=== PATIENT | female | born 1950 | race Caucasian/White ===

== ENCOUNTER → 2016-08-02 | Outpatient (CLI) | payer OTHER ==
[~2016-08-02] MED LIST: LIDOCAINE 1% 30 ML SDV ONE; NA BICARBONATE 50 MEQ/50 ML VIAL ONE
--- NOTE | 2016-08-02 11:07 | US ---
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 Crosscutting Measure #226: Current tobacco user: No. Comparison: CT abdomen and pelvis from [facility], June 27, 2016. Technique: Prior to the procedure, the risks, benefits, and alternatives were discussed with the pat ient, and informed written consent was obtained. A preprocedure ultrasound demonstrated a large simpl e-appearing fluid collection. A timeout was performed. An overlying area of skin was marked, cleane d with Chloraprep and sterilely draped. The skin and soft tissues were anesthetized with buffered 1% lidocaine. A small amount of fluid was aspirated via the anesthesia needle, showing simple-appearing yellow fluid. A paracentesis catheter was advanced into the fluid collection under ultrasound guidanc e and 900 mL of clear yellow fluid were aspirated and sent to the Laboratory. There was no visible re sidual fluid at the end of the procedure. The catheter was removed. Hemostasis was obtained with manu al pressure and a bandage was applied. The patient tolerated the procedure well. Impression: Ultrasound-guided aspiration, as above.
== END ==
LOC: FIMAGING 09:51
PROVIDERS: ATTEND Internal Medicine Hematology & Oncology
PROC: 0W9F3ZZ Drainage of Abdominal Wall, Percutaneous Approach (ICD-10-PCS; principal; 2016-08-02)
DX: R18.8 Other ascites (principal); C18.1 Malignant neoplasm of appendix

== ENCOUNTER 2016-08-11 07:08 | Inpatient (IN) | payer OTHER ==
[2016-08-11] MEDS ORDERED: ONDANSETRON 4 MG/2 ML VIAL IVP ONE (07:30)
[2016-08-11] MEDS ORDERED: MECLIZINE HCL 25 MG TAB PO ONE (07:30)
--- NOTE | 2016-08-11 07:30 | EDPHY ---
HPI/HX/ROS/PE/MDM Narrative: CHIEF COMPLAINT: "I'm just dizzy and I can't keep any food down" HPI: The patient is a 66 y/o female arriving with her friend complaining of vomiting and dizziness onset Friday, 4 days ago. She has a history of colon cancer with peritonectomy 5 months ago, but is not currently on chemotherapy. She began vomiting on Friday, felt normal on , but by Friday was vomiting and dizzy when moving. She describes her dizziness as "room-spinning" when standing and walking. She denies fever, cold, vision changes, chest pain, or shortness of breath. REVIEW OF SYSTEMS: Aside from elements discussed in the HPI, a comprehensive 10-point review of systems was reviewed and is negative. PMH: Colon cancer - not currently on chemotherapy, Peritonectomy March 2016 SOCIAL HISTORY: Friend at bedside PHYSICAL EXAM: General:Patient is alert, in no acute distress. ENT:Eyes are normal to inspection. EOMI intact, no nystagmus. ENT inspection normal. Neck: Normal inspection. Full range of motion. Respiratory:No respiratory distress. Breath sounds normal bilaterally. Cardiovascular: Regular rate and rhythm. Strong peripheral pulses. Normal cap refill. Abdomen:The abdomen is nontender to palpation. There are no peritoneal signs. There are normal bowel sounds. Back: Normal to inspection. No tenderness to palpation. Skin: Normal color. No rash. Warm and dry. Extremities: Normal appearance. Full range of motion. Neuro: Oriented x3. Normal motor function. Normal sensory function. Normal [id number]. ED Course: Symptoms consistent with positional vertigo. IV established. Labs drawn including CBC, CHEM, troponin. EKG ordered. 4mg IV Zofran, 50mg PO Meclizine, and 1L IV NS administered. The 12 lead EKG was interpreted by myself. See hard copy and/or "tracemaster" electronic copy for interpretation. 0830: Potassium is low at 2.4. Patient notes she has not been taking her potassium or iron supplements due to vomiting. 40meq PO potassium administered. 0939: She feels improved after Meclizine, saline, and oral potassium. She does have an elevated blood pressure here and denies previous history of hypertension. I discussed options for admission vs. discharge home. We mutually decided admission is the best choice to monitor her new hypertension, vertigo, and hypokalemia. 1010: Spoke with hospitalist service. Dr. Amy Madera accepts admission. MDM: This patient presents with acute vertigo that seems peripheral in nature. She responded well to medications, but I am concerned about her ability to tolerate her potassium supplements, and she is quite hypokalemic here today. Additionally, her BP is significantly elevated which is new for her. She has a normal cerebellar exam so I think CVA is very unlikely. She requires admission for further observation, treatment and workup. - Data Points Laboratory Results: Laboratory Results 08/11/16 07:25 08/11/16 07:25 08/11/16 07:25 WBC 11.55 H 10^3/uL (3.80-9.50) RBC 5.75 H 10^6/uL (4.18-5.33) Hgb 16.2 g/dL (12.6-16.3) Hct 46.4 % (38.0-47.0) MCV 80.7 L fL (81.5-99.8) MCH 28.2 pg (27.9-34.1) MCHC 34.9 g/dL (32.4-36.7) RDW 13.8 % (11.5-15.2) Plt Count 282 10^3/uL (150-400) MPV 9.1 fL (8.7-11.7) Neut % (Auto) 74.2 % (39.3-74.2) Lymph % (Auto) 17.6 % (15.0-45.0) [place] % (Auto) 6.7 % (4.5-13.0) Eos % (Auto) 0.6 % (0.6-7.6) Baso % (Auto) 0.6 % (0.3-1.7) Nucleat RBC Rel Count 0.0 % (0.0-0.2) Absolute Neuts (auto) 8.57 H 10^3/uL (1.70-6.50) Absolute Lymphs (auto) 2.03 10^3/uL (1.00-3.00) Absolute Monos (auto) 0.77 10^3/uL (0.30-0.80) Absolute Eos (auto) 0.07 10^3/uL (0.03-0.40) Absolute Basos (auto) 0.07 10^3/uL (0.02-0.10) Absolute Nucleated RBC 0.00 10^3/uL (0-0.01) Immature Gran % 0.3 % (0.0-1.1) Immature Gran # 0.04 10^3/uL (0.00-0.10) Sodium 143 mEq/L (134-144) Potassium 2.4 L* mEq/L (3.5-5.2) Chloride 98 mEq/L (97-110) Carbon Dioxide 24 mEq/l (22-31) Anion Gap 21 mEq/L (8-16) BUN 12 mg/dL (7-23) Creatinine 0.8 mg/dL (0.6-1.0) Estimated GFR > 60 Glucose 112 H mg/dL (70-100) Calcium 10.3 mg/dL (8.5-10.4) Troponin I 0.013 ng/mL (0-0.034) Medications Given: Discontinued Medications Sodium Chloride (Ns) 1,000 mls @ 0 mls/hr IV ONCE ONE PRN Reason: Wide Open Stop: 08/11/16 07:32 Last Admin: 08/11/16 07:35 Dose: 1,000 mls Meclizine HCl (Meclizine Hcl) 50 mg PO EDNOW ONE Stop: 08/11/16 07:31 Last Admin: 08/11/16 08:10 Dose: 50 mg Ondansetron HCl (Zofran) 4 mg IVP EDNOW ONE Stop: 08/11/16 07:31 Last Admin: 08/11/16 07:35 Dose: 4 mg Potassium Chloride (Klor-Con) 40 meq PO EDNOW ONE Stop: 08/11/16 08:50 Last Admin: 08/11/16 09:04 Dose: 40 meq General Initial Vital Signs: Initial Vital Signs Temperature (C) 36.5 C 08/11/16 07:11 Heart Rate 68 08/11/16 07:11 Respiratory Rate 19 08/11/16 07:11 Blood Pressure 188/98 H 08/11/16 07:11 O2 Sat (%) 98 08/11/16 07:11 O2 Delivery Mode Room Air Allergies/Adverse Reactions: No Known Allergies Allergy (Unverified 08/11/16 07:10) Home Medications: Medication Instructions Recorded Ferrous Sulfate [Ferrous Sulf 325 325 mg PO DAILY 08/11/16 MG (*)] Herbals/Supplements -Info Only 1 ea PO DAILY 08/11/16 Potassium Cl [Klor-Con] 10 meq PO BID 08/11/16 Departure - Departure Disposition: [facility] [place] [facility] Acute Clinical Impression: Hypokalemia Positional vertigo Qualifiers: Laterality: unspecified laterality Qualifier Code: (H81.10) Benign paroxysmal vertigo, unspecified ear Hypertension Qualifiers: Hypertension type: essential hypertension Qualifier Code: (I10) Essential ( primary) hypertension Condition: Good Report Scribed for: Christopher Sellers Report Scribed by: Ann Sanz Date of Report: 08/11/16 Time of Report: 07:17 Physician Review and Approval Statement: Portions of this note were transcribed by an ED scribe. I personally performed the history, physical exam, and medical decision making; and confirm the accuracy of the information in the transcribed note.
[2016-08-11] MEDS ORDERED: NS 1,000 ML IV ONE (07:31)
[2016-08-11 07:34] LABS: % IMMATURE GRANULYOCYTES 0.3 % (0.0-1.1); ABSOLUTE IMMATURE GRANULOCYTES 0.04 10^3/uL (0.00-0.10); ADD DIFF? NO; ADD MORPH? NO; ADD SCAN? NO; ATYPICAL LYMPHOCYTE FLAG 0 (0-99); FRAGMENT RBC FLAG 0 (0-99); HEMATOCRIT 46.4 % (38.0-47.0); HEMOGLOBIN 16.2 g/dL (12.6-16.3); LEFT SHIFT FLG 0 (0-99); LIPEMIA HEMOLYSIS FLAG 90 (0-99); MEAN CELL HEMOGLOBIN 28.2 pg (27.9-34.1); MEAN CELL HEMOGLOBIN CONCENTR. 34.9 g/dL (32.4-36.7); MEAN CELL VOLUME 80.7 fL (81.5-99.8); MEAN PLATELET VOLUME 9.1 fL (8.7-11.7); PLATELET CLUMPS FLAG 0 (0-99); PLATELET COUNT 282 10^3/uL (150-400); RED BLOOD CELL COUNT 5.75 10^6/uL (4.18-5.33); RED CELL DISTRIBUTION WIDTH 13.8 % (11.5-15.2)
--- NOTE | 2016-08-11 07:42 | CPEKG ---
Heart Rate: 59 RR Interval: 1017 P-R Interval: 140 QRSD Interval: 78 QT Interval: 448 QTC Interval: 444 P [place]: 72 QRS [place]: 43 T Wave [place]: 75 EKG Severity - ABNORMAL ECG - EKG Impression: SINUS RHYTHM EKG Impression: CONSIDER POSTERIOR INFARCT Electronically Signed By: Christopher Sellers 11-Aug-2016 15:44:13
[2016-08-11 07:45] LABS: ANION GAP 21 mEq/L (8-16); CALCIUM 10.3 mg/dL (8.5-10.4); GLOMERULAR FILTRATION RATE > 60
[2016-08-11 07:57] LABS: TROPONIN I 0.013 ng/mL (0-0.034)
[2016-08-11 08:12] LABS: CARBON DIOXIDE 24 mEq/l (22-31); CHLORIDE 98 mEq/L (97-110); CREATININE 0.8 mg/dL (0.6-1.0); GLUCOSE 112 mg/dL (70-100); SODIUM 143 mEq/L (134-144)
[2016-08-11 08:28] LABS: POTASSIUM 2.4 mEq/L (3.5-5.2)
[2016-08-11] MEDS ORDERED: POTASSIUM CL 20 MEQ TAB PO ONE (08:49)
[2016-08-11] MEDS: hydrALAZINE 20 MG/ML VIAL IVP PRN (12:53)
[2016-08-11] MEDS: ONDANSETRON 4 MG/2 ML VIAL IVP PRN (12:54)
[2016-08-11] MEDS ORDERED: FLU VACC TS 2016-17(65YR+)/PF 0.5 ML SYR (FLUZONE HIGH DOSE) IM ONE (13:30)
[2016-08-11] MEDS: ENALAPRILAT DIHYDRATE 1.25 MG/ML VIAL IVP PRN ×2 (13:57→22:38)
[2016-08-11] MEDS ORDERED: ACETAMINOPHEN 325 MG TAB PO PRN (15:50)
--- NOTE | 2016-08-11 15:50 | PDGENHP ---
History and Physical History and Physical: Chief complaint: Dizziness, nausea and vomiting History of present illness: Pt is a 66yo F who p/w dizziness that began about 4 days ago. It came and went. It was a/w nausea and vomiting. She was not eating or drinking much in the last few days because she was unable to keep anything down. She denies any changes in hearing, although she does wear hearing aids normally. She denies tinnitus. She thought she might be coming down with a flu but denies any congestion, runny nose, sore throat, cough, fevers/chills, or diarrhea. Dizziness is worse when she moves her head. She feels like the room is moving, but not really spinning. She has had a headache on and off, which is worse today. She was also noted to have high BP today, without any h/o HTN. She has seen many healthcare professionals in the last few months related to her recent history of cancer and has never been found to have high BP. Other symptoms: has some chronic abd aching from prior abd surgery/ paracentesis. 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 Past surgical history: peritonectomy Mar 2016, paracentesis Jul 2016, appendectomy w/ incidental finding of colon cancer Apr 2015. Medications: please see med rec. Iron and potassium supplements. Allergies: NKA. Social history: occasional alcohol, non-smoker, no drug use. Lives alone. . Has a living will -- sister and brother are POAs. Family history: Mother - breast cancer, brother - liver disease, acromegaly. Review of systems: 10 point review of systems was conducted and is negative except per HPI Physical exam: Vitals: Reviewed General: The patient is a middle aged female who is A&Ox3 and in no acute distress. HEENT: normocephalic, extraocular movements intact, conjunctivae clear. Nares and oral mucosa pink and moist. Neck: trachea midline, no visible masses, no external lesions. CV: +S1/S2, reg rate and rhythm. No murmurs/rubs/gallops. Resp: unlabored breathing, lungs clear to auscultation w/o rales, rhonchi, or wheezing. Abd: soft and nondistended, bowel sounds present. Noted surgical scar. Nontender to palpation throughout. Musculoskeletal: 5/5 muscle strength bilateral upper and lower extremities. Neuro: cranial nerves II XII intact. Intact motor and sensory function throughout. Negative heel-lomas test bilaterally. Normal RADHA. No pronator drift. Patellar DTRs +1 bilaterally. No clonus. Psych: appropriate mood/affect. Skin: No rash or ecchymoses or petechiae. : no suprapubic tenderness. Heme/lymph: No peripheral edema. Labs: Reviewed, noted low potassium. Other Data: EKG: NSR, rt 60, 1mm ST depression V2, QTc around 450ms. Impression and plan: -Vertigo, likely secondary to BPPV -Nausea and vomiting, secondary to vertigo -Dehydration, secondary to above -Accelerated HTN, secondary to vomiting -Headache, secondary to HTNsive urgency and dehydration -Hypokalemia -St IV colon cancer w/ mets to peritoneum, s/p surgery/chemo, in remission -Vertigo is more likely from BPPV but can be secondary to some other etiologies as well. No neuro deficits were noted on exam or per history to raise concern about CVA. Could possibly have a labrynthitis, possibly from virus. Provided patient w/ handout about dizziness/vertigo from [employer] as well as a handout about BPPV including maneuvers from [facility]. -prn antiemetics. -prn YANEZ medication. -Received IV fluids in ED. -Potassium replaced. -prn meclizine. -VTE ppx - not needed. -Code status - full. Dispo: admitted for Obs, expect DC to home in AM.
[2016-08-11] MEDS ORDERED: POTASSIUM CL 20 MEQ PKT PO ONE (16:31)
[2016-08-11] MEDS: ACETAMINOPHEN/ASA/CAFFEINE 1 EACH TAB PO PRN (16:46)
[2016-08-11] MEDS: OXYCODONE/APAP 5/325 TAB PO PRN (20:44)
--- NOTE | 2016-08-11 22:09 | CT ---
CT Brain (Without Contrast) at 2151 hours History: Altered mental status, slurred speech, headache. Comparison: None. Technique: Axial computed tomographic images of the brain without contrast. Dose reduction technique s were utilized. Findings: Ventricles, cisterns, and sulci are normal without atrophy, hydrocephalus, midline shift/h erniation, or epidural/subdural hematomas. No acute intraparenchymal hemorrhage, definite infarct, or mass effect. Bone windows demonstrate no displaced fractures. Paranasal sinuses and mastoid air cell s are clear. Impression: 1. Normal CT brain without contrast. 2. No sinusitis. 3.Consider MRI of the brain without and with contrast enhancement, if there is continued clinical con cern.
--- NOTE | 2016-08-11 23:21 | HOSPPROG ---
Hospitalist Progress Note Assessment/Plan: Called by RN for uncontrolled htn and YANEZ. RN reported that patient was confused earlier, poured a pitcher on her bed. She reports ongoing severe YANEZ to me and recognizes that she feels confused. 193/93, HR 70 appears uncomfortable, holding head, slow to respond AOx3, neuro exam nl CTH neg A/P: Concern for htn emergency with confusion and persistent YANEZ Transfer to ICU, place on Cardene gtt, goal SBP 160-170 Morphine for YANEZ Recheck BMP and trop 35 mins floor critical care time spent with patient Objective: Vital Signs Temp Pulse Resp BP Pulse Ox 36.7 C 63 18 179/106 H 97 08/11/16 20:00 08/11/16 20:00 08/11/16 20:00 08/11/16 22:38 08/11/16 20:00 ICD10 Worksheet Patient Problems: Problems Problem Status Diagnosed Hypertension Acute Hypokalemia Acute Positional vertigo Acute
[2016-08-11 23:48] LABS: ANION GAP 16 mEq/L (8-16); CALCIUM 9.4 mg/dL (8.5-10.4); CARBON DIOXIDE 24 mEq/l (22-31); CHLORIDE 102 mEq/L (97-110); CREATININE 0.7 mg/dL (0.6-1.0); GLOMERULAR FILTRATION RATE > 60; GLUCOSE 110 mg/dL (70-100); SODIUM 142 mEq/L (134-144)
[2016-08-11] MEDS: niCARdipine/NACL 200 ML IV SCH (23:49)
[2016-08-12 00:11] LABS: TROPONIN I 0.039 ng/mL (0-0.034)
[2016-08-12] MEDS: ONDANSETRON 4 MG/2 ML VIAL IVP PRN (00:34)
[2016-08-12] MEDS: ACETAMINOPHEN/ASA/CAFFEINE 1 EACH TAB PO PRN (00:34)
[2016-08-12] MEDS: NS W/ 20 KCl/L 1,000 ML IV SCH ×2 (01:06→10:56)
[2016-08-12] MEDS ORDERED: POTASSIUM CL 20 MEQ TAB PO ONE (01:06)
[2016-08-12] MEDS: hydrALAZINE 20 MG/ML VIAL IVP PRN ×2 (03:54→13:21)
[2016-08-12 04:35] LABS: ANION GAP 14 mEq/L (8-16); CALCIUM 9.2 mg/dL (8.5-10.4); CARBON DIOXIDE 23 mEq/l (22-31); CHLORIDE 104 mEq/L (97-110); CREATININE 0.6 mg/dL (0.6-1.0); GLOMERULAR FILTRATION RATE > 60; GLUCOSE 110 mg/dL (70-100); POTASSIUM 3.3 mEq/L (3.5-5.2); SODIUM 141 mEq/L (134-144)
[2016-08-12] MEDS ORDERED: GADOBUTROL 10 ML VIAL IVP ONE (11:09)
[2016-08-12] MEDS: ENOXAPARIN 40 MG/0.4 ML SYR SC SCH ×2 (12:24→14:07)
--- NOTE | 2016-08-12 13:30 | MR ---
MRI of the Brain (Without Contrast) History: Confusion, dizziness. Technique: 2 sets of localization fast GRE imaging is performed through the brain in 3 planes. Due to patient confusion, she could not hold still and therefore the study was terminated. Findings: Very limited evaluation does not identify hydrocephalus, midline shift or an obvious large intracranial mass or hemorrhage. Impression: Very limited examination does not show any obvious gross pathology. Recommend reschedulin g with patient sedation or when the patient is less confused.
--- NOTE | 2016-08-12 13:45 | GCON ---
[f rep st] CONSULTATION CRITICAL CARE CONSULTATION DATE OF CONSULTATION: 08/12/2016 HISTORY OF PRESENT ILLNESS: The patient is a 66-year-old female with a history of metastatic colon cancer who has been in remission since her last chemotherapy in March. Yesterday, she was admitted to the hospital with nausea, vomiting, and dizziness which was thought to be vertigo. She denied any known sick contacts. She did have a headache. She had been feeling poorly for the week preceding that event. She was also found to have a potassium of 2.4 and a blood pressure of at least 188/98. Her blood pressure persisted and she was briefly on a Cardene drip, and that has subsequently resolved. She had no syncope. She had no visual changes or hearing changes, difficulty swallowing , and no motor deficits, and no history of strokes in the past. REVIEW OF SYSTEMS: Otherwise negative. PAST MEDICAL HISTORY: Includes stage IV metastatic colon cancer treated with a peritonectomy, on chemotherapy, and has been in remission. Hard of hearing. Hypokalemia that has been present since the time of her surgery, though she was uncertain as to the exact cause. PAST SURGICAL HISTORY: Included peritonectomy, paracenteses in the past, and appendectomy in 2014 when her colon cancer was first diagnosed. SOCIAL HISTORY: She is a nonsmoker. Has occasional alcohol, but no IV or recreational drug use. FAMILY HISTORY: Included breast carcinoma and acromegaly. CURRENT MEDICATIONS: Include Excedrin, Vasotec p.r.n., Lovenox subcu daily, hydralazine p.r.n., meclizine 25 mg p.o. b.i.d. p.r.n., morphine p.r.n., nicardipine p.r.n., Zofran, and potassium. PHYSICAL EXAMINATION: VITAL SIGNS: She was afebrile. Blood pressure was 106/ 57, heart rate 71, respirations 12, oxygen saturation 96% on room air. GENERAL : She was awake and alert, though she was confused and only oriented x1. She did not know the president, the name of the hospital, or the name of the city. HEENT: Her pupils are equally round and reactive to light. Nonicteric and non- injected. Mucous membranes are moist without erythema or exudate, though she did have a fairly large tongue and had a Mallampati class III to IV airway. NECK: Supple without adenopathy or jugular venous distention. PULMONARY: Breath sounds were clear to auscultation bilaterally without wheezes, rubs or rales. HEART: Regular rate and rhythm without murmurs, rubs or gallops. ABDOMEN: Soft, nontender, nondistended without hepatosplenomegaly and normoactive bowel tones. EXTREMITIES: No cyanosis, clubbing, or edema. NEUROLOGIC: Exam was nonfocal, including cranial nerves and deep tendon reflexes. SKIN: Warm and dry without evidence of rash. PSYCHIATRIC: There was no underlying psychiatric disorder. OBJECTIVE DATA: Includes a white count of 11.5, hematocrit 46, platelets 282. Sodium was 143, potassium 2.4 on admission, 3.3 today, chloride 104, bicarb 23, BUN 10, creatinine 0.6, glucose 110. Calcium 0.2. Troponin was 0.013, up to 0.39, and back down to 0.02. Head CT was performed which was normal. ASSESSMENT AND PLAN: 1. Mental status changes with vertigo. Her symptoms seem to be rather acute to have benign positional vertigo. Other possibilities include a subtle stroke that did not show, then hypertensive encephalopathy, the posterior reversible encephalopathy syndrome where she was dehydrated from the nausea/vomiting. Metastases of the brain also seems unlikely. She seems to be getting better a little bit today and it may be the result of the potassium replacement. An MRI has been ordered and that is pending at this time. I think it would be useful in narrowing down the differential diagnosis. 2. Hypertension. She is normotensive now. She was really quite high yesterday and that could cause hypertensive encephalopathy. Again, the CT would be useful and her blood pressure is much better controlled now. 3. Hypokalemia. This is likely do to a resorption issue related to her partial hemicolectomy and previous surgery since she has been on replacement since that time. A hyperaldosteronemia syndrome is being worked up. We will also look at a urinalysis and urine electrolytes to help determine what that is , and then continue to replace her potassium via the electrolyte protocol. TIME SPENT: A total of about 45 minutes of critical care time was required for this patient. /[id number]/MODL MTDD
--- NOTE | 2016-08-12 14:03 | HOSPPROG ---
Hospitalist Progress Note Assessment/Plan: * vertigo/headache * wanted to get MRI which she is unable to tolerate * will get CTA to rule out vertebral artery dissection * hypertensive urgency * now resolved * hypokalemia * appears to have been chronic * will check renin aldosterone ratio * history of metastatic colon cancer diagnosed 2013 * was in remission * last CT scan a few months ago was stable but did have a little bit of right hydronephrosis * DVT prophylaxis * continue SCDs until more clear of the etiology of her symptoms Subjective: continued headache, dizziness and nausea also with confusion Objective: Vital Signs Temp Pulse Resp BP Pulse Ox 37.1 C 91 17 162/78 H 98 08/12/16 13:00 08/12/16 13:00 08/12/16 13:00 08/12/16 13:21 08/12/16 13:00 Laboratory Results 08/12/16 04:00 08/11/16 08/12/16 08/13/16 05:59 05:59 05:59 Intake Total 634 Output Total 200 Balance 634 -200 discussed with pulmonology - Physical Exam Constitutional: no apparent distress, appears nourished, not in pain Eyes: anicteric sclera, EOMI Ears, Nose, Mouth, Throat: moist mucous membranes, hearing normal Cardiovascular: regular rate and rhythym, no murmur, rub, or gallop Respiratory: no respiratory distress, no rales or rhonchi, clear to auscultation Gastrointestinal: normoactive bowel sounds, soft, non-tender abdomen, no palpable masses Neurologic: AAOx3, other ( not acting appropriately), No weakness Psychiatric: encephalopathic ICD10 Worksheet Patient Problems: Problems Problem Status Diagnosed Hypertension Acute Hypokalemia Acute Positional vertigo Acute
[2016-08-12 14:09] LABS: COLOR YELLOW; LEUKOCYTE ESTERASE,URINE NEGATIVE (NEGATIVE); NITRITE,URINE NEGATIVE (NEGATIVE)
[2016-08-12] MEDS ORDERED: IOPAMIDOL (ISOVUE 370) 100 ML BTL IV ONE (14:17)
[2016-08-12 14:20] LABS: RANDOM URINE POTASSIUM 55.2 mEq/L (0.5-35.0)
--- NOTE | 2016-08-12 15:18 | CT ---
CT Angiogram Neck With Contrast Enhancement and Multiplanar Reconstructions at 1432 hours History: Stroke protocol. Posterior circulation stroke, suspect vertebral dissection. Technique: 1.25-mm axial multidetector helical CT imaging was performed through the brain and neck wh ile 85 mL Isovue-370 were injected intravenously without complication. The images were then transfer red to an independent workstation where multiplanar and three-dimensional reconstructions were perfor med by the interpreting physician and reviewed at multiple windows. Dose reduction techniques were ut ilized. CTA Findings: Slightly limited due to patient motion artifact. However, aortic arch origin of the gre at vessels appear patent. Bilateral common carotid arteries demonstrate minimal atherosclerotic plaqu e at the carotid bulb. No flow-limiting stenosis, occlusion or dissection of the common carotid or in ternal carotid arteries. Bilateral vertebral arteries also appear patent with a dominant left vertebr al artery and a very small distal right vertebral artery. However, vertebrobasilar junction is patent . No evidence of definite vertebral dissection or occlusion. No definite neck adenopathy. Impression: 1. Minimal atherosclerotic disease in bilateral carotid bulbs. 2. No evidence of carotid flow-limiting stenosis, occlusion or dissection. 3. Dominant left vertebral artery with a small right vertebral artery. No vertebral dissection or occ lusion. Measurement of carotid stenosis is based on the residual internal carotid diameter with [place] n Symptomatic Carotid Endarterectomy Trial (NASCET) based stenosis levels. CT Angiogram of the Brain Clinical Indications: Stroke protocol. Posterior circulation stroke, suspect vertebral dissection. Technique: CT angiogram of the brain and neck was performed with the uneventful intravenous administ ration of 85 mL Isovue-370 contrast. Multiplanar reconstructions including 3D reconstructions perform ed and evaluated on [employer] workstation in order to better evaluate the [place] vessels. Imag es were manipulated by the radiologist at the computer workstation. Dose reduction techniques were ut ilized. Findings: Major vessels of the [place] are adequately displayed, demonstrating no evidence of aneurysm, vascular malformation, flow-limiting stenosis, or occlusion. Bilateral cavernous interna l carotid arteries and vertebrobasilar system demonstrates no evidence of flow-limiting stenosis, ane urysm, occlusion, or dissection. Superior sagittal sinus, transverse sinuses, and major veins demonst rate no evidence of intraluminal thrombi. origin bilateral posterior cerebral arteries noted. Impression: Negative CT angiogram of the brain. Recommendation: Consider MRI brain without and with contrast enhancement if clinically indicated. Findings and recommendations discussed with Dr. Ankur Jiménez at 1500 hour on August 12, 2016.
--- NOTE | 2016-08-12 15:18 | CT ---
CT Angiogram Neck With Contrast Enhancement and Multiplanar Reconstructions at 1432 hours History: Stroke protocol. Posterior circulation stroke, suspect vertebral dissection. Technique: 1.25-mm axial multidetector helical CT imaging was performed through the brain and neck wh ile 85 mL Isovue-370 were injected intravenously without complication. The images were then transfer red to an independent workstation where multiplanar and three-dimensional reconstructions were perfor med by the interpreting physician and reviewed at multiple windows. Dose reduction techniques were ut ilized. CTA Findings: Slightly limited due to patient motion artifact. However, aortic arch origin of the gre at vessels appear patent. Bilateral common carotid arteries demonstrate minimal atherosclerotic plaqu e at the carotid bulb. No flow-limiting stenosis, occlusion or dissection of the common carotid or in ternal carotid arteries. Bilateral vertebral arteries also appear patent with a dominant left vertebr al artery and a very small distal right vertebral artery. However, vertebrobasilar junction is patent . No evidence of definite vertebral dissection or occlusion. No definite neck adenopathy. Impression: 1. Minimal atherosclerotic disease in bilateral carotid bulbs. 2. No evidence of carotid flow-limiting stenosis, occlusion or dissection. 3. Dominant left vertebral artery with a small right vertebral artery. No vertebral dissection or occ lusion. Measurement of carotid stenosis is based on the residual internal carotid diameter with [place] n Symptomatic Carotid Endarterectomy Trial (NASCET) based stenosis levels. CT Angiogram of the Brain Clinical Indications: Stroke protocol. Posterior circulation stroke, suspect vertebral dissection. Technique: CT angiogram of the brain and neck was performed with the uneventful intravenous administ ration of 85 mL Isovue-370 contrast. Multiplanar reconstructions including 3D reconstructions perform ed and evaluated on [employer] workstation in order to better evaluate the [place] vessels. Imag es were manipulated by the radiologist at the computer workstation. Dose reduction techniques were ut ilized. Findings: Major vessels of the [place] are adequately displayed, demonstrating no evidence of aneurysm, vascular malformation, flow-limiting stenosis, or occlusion. Bilateral cavernous interna l carotid arteries and vertebrobasilar system demonstrates no evidence of flow-limiting stenosis, ane urysm, occlusion, or dissection. Superior sagittal sinus, transverse sinuses, and major veins demonst rate no evidence of intraluminal thrombi. origin bilateral posterior cerebral arteries noted. Impression: Negative CT angiogram of the brain. Recommendation: Consider MRI brain without and with contrast enhancement if clinically indicated. Findings and recommendations discussed with Dr. Ankur Jiménez at 1500 hour on August 12, 2016.
[2016-08-13] MEDS: ENALAPRILAT DIHYDRATE 1.25 MG/ML VIAL IVP PRN ×2 (02:08→08:02)
[2016-08-13 05:32] LABS: % IMMATURE GRANULYOCYTES 0.3 % (0.0-1.1); ABSOLUTE IMMATURE GRANULOCYTES 0.03 10^3/uL (0.00-0.10); ADD DIFF? NO; ADD MORPH? NO; ADD SCAN? NO; ATYPICAL LYMPHOCYTE FLAG 0 (0-99); FRAGMENT RBC FLAG 0 (0-99); HEMATOCRIT 38.9 % (38.0-47.0); HEMOGLOBIN 13.1 g/dL (12.6-16.3); LEFT SHIFT FLG 0 (0-99); LIPEMIA HEMOLYSIS FLAG 80 (0-99); MEAN CELL HEMOGLOBIN CONCENTR. 33.7 g/dL (32.4-36.7); MEAN CELL VOLUME 86.1 fL (81.5-99.8); MEAN PLATELET VOLUME 9.1 fL (8.7-11.7); PLATELET CLUMPS FLAG 0 (0-99); PLATELET COUNT 194 10^3/uL (150-400); RED BLOOD CELL COUNT 4.52 10^6/uL (4.18-5.33); RED CELL DISTRIBUTION WIDTH 14.5 % (11.5-15.2)
[2016-08-13 05:45] LABS: ALANINE AMINOTRANSFERASE 35 IU/L (9-52); ALBUMIN 3.3 g/dL (3.5-5.0); ALKALINE PHOSPHATASE 56 IU/L (38-126); ANION GAP 10 mEq/L (8-16); ASPARTATE AMINOTRANSFERASE 25 IU/L (14-46); BILIRUBIN,TOTAL 1.5 mg/dL (0.1-1.4); CALCIUM 9.6 mg/dL (8.5-10.4); CARBON DIOXIDE 23 mEq/l (22-31); CHLORIDE 107 mEq/L (97-110); CREATININE 0.7 mg/dL (0.6-1.0); GLOMERULAR FILTRATION RATE > 60; GLUCOSE 90 mg/dL (70-100); MAGNESIUM 1.6 mg/dL (1.6-2.3); POTASSIUM 3.3 mEq/L (3.5-5.2); SODIUM 140 mEq/L (134-144); TOTAL PROTEIN 6.5 g/dL (6.3-8.2)
[2016-08-13] MEDS ORDERED: PROTOCOL POTASSIUM 1 DOSE MISC PRN (06:02)
[2016-08-13] MEDS ORDERED: PROTOCOL MAGNESIUM 1 DOSE IV PRN (06:02)
[2016-08-13] MEDS ORDERED: POTASSIUM CL 10 MEQ TAB PO ONE ×2 (06:05→14:35)
[2016-08-13] MEDS ORDERED: MAGNESIUM SULF 1 GM/DEXTROSE 100 ML IV ONE ×2 (06:05→14:37)
[2016-08-13] MEDS: ACETAMINOPHEN/ASA/CAFFEINE 1 EACH TAB PO PRN (07:12)
[2016-08-13] MEDS: hydrALAZINE 20 MG/ML VIAL IVP PRN (08:32)
[2016-08-13] MEDS: OXYCODONE/APAP 5/325 TAB PO PRN ×3 (08:33→23:41)
[2016-08-13] MEDS: niCARdipine/NACL 200 ML IV SCH (09:30)
[2016-08-13] MEDS: NS W/ 20 KCl/L 1,000 ML IV SCH ×2 (09:33→20:42)
[2016-08-13] MEDS ORDERED: LORazepam 2 MG/ML INJ IVP PRN (11:32)
[2016-08-13 14:02] LABS: MAGNESIUM 1.8 mg/dL (1.6-2.3); POTASSIUM 3.8 mEq/L (3.5-5.2)
--- NOTE | 2016-08-13 14:21 | MR ---
MRI of the Brain (Without Contrast) August 13, 2016 Clinical Indication: Confusion. Dizziness. Comparison examination: One day earlier. Technique: T1-weighted images were acquired axially and sagittally from the foramen magnum to the ve rtex. Axial FLAIR, fast T2-weighted, and diffusion-weighted axial images were obtained without contr ast. Findings: Underlying white matter microvascular ischemic gliosis involves the sang[place] and the periventri cular regions bilaterally, moderate severity. No evidence of acute cortical ischemia on diffusion-hilda ghted imaging. No evidence of mass or mass effect or intracranial hemorrhage. Carotid and vertebral b asilar flow voids are present. Craniocervical junction is normal as is the skull base. IMPRESSION: 1. Moderate white matter disease, otherwise normal exam.
--- NOTE | 2016-08-13 15:00 | PDINTPN ---
Political Consultant Progress Note Assessment/Plan: Assessment/plan: * Altered mental status- I suspect primarily from hypertensive urgencies which appear paroxysmal. No evidence for CVA, PRES, or subtle changes on both CT and MRI * HTN- this continues to be a problem, though easily managed on drips. Will get renal consult to help evaluate for secondary causes. Renin/winifred ratio currently pending and will check random urine catecholamines * Hypokalemia- as above. She reports this happening since her peritonectomy years ago and has been unable to stop taking it (no diuretics). I suspect she is wasting potassium in her kidneys but will await the renal consult for now. * Hx colon cancer in remission * 08/13/16 14:55 08/13/16 15:04 Objective: Vital Signs Temp Pulse Resp BP Pulse Ox 37.0 C 71 13 122/53 H 93 08/13/16 12:00 08/13/16 14:00 08/13/16 14:00 08/13/16 14:00 08/13/16 14:00 Laboratory Results 08/13/16 05:10 08/13/16 12:20 08/12/16 08/13/16 08/14/16 05:59 05:59 05:59 Intake Total 2275 50 Output Total 1400 450 Balance 875 -400 Physical Exam - Physical Exam General Appearance: no apparent distress, other (somnolent but arousable. No change from 08/12) EENT: PERRL/EOMI, No scleral icterus (R), No scleral icterus (L) Neck: non-tender, full range of motion, supple Respiratory: lungs clear, normal breath sounds, No respiratory distress, No crackles, No rales, No wheezing Cardiac/Chest: normal peripheral pulses, regular rate, rhythm, No edema, No systolic murmur Abdomen: normal bowel sounds, non-tender, soft, No mass, No hepatomegaly, No bruit Skin: normal color, warm/dry, No cyanosis, No diaphoresis Lymphatic: No no adenopathy Extremities: normal inspection, No pedal edema Neuro/Psych: disoriented to person, disoriented to place, disoriented to time, No oriented x 3, No abnormal living advisor II-XII ICD10 Worksheet Patient Problems: Problems Problem Status Diagnosed Hypertension Acute Hypokalemia Acute Positional vertigo Acute
--- NOTE | 2016-08-13 15:13 | HOSPPROG ---
Hospitalist Progress Note Assessment/Plan: # hypertensive urgency- required have re-initiation of nicardipine drip overnight for systolic blood pressure greater than 180 - continue nicardipine as needed - workup initiated to rule out renal artery stenosis and pheochromocytoma - will need to build oral regimen to keep systolic blood pressure is controlled # vertigo/headache- suspecting related to hypertensive urgency - CT head( personally reviewed and interpreted) without acute stroke or bleed oxygen saturations 93% on room air - MRI ordered for today to rule out stroke - continue blood pressure control as above # hypokalemia- potassium 3.3 this morning- chronic-on twice daily potassium supplementation as an outpatient- etiology unclear - renin aldosterone ratio pending - continue p.r.n. repletion # history of metastatic colon cancer diagnosed 2013- was in remission # diet taking p.o. # DVT prophylaxis- can start Lovenox if the brain imaging normal # disposition greater than 2 midnights as still requiring IV medications for blood pressure control discussed the case with Dr. Saunders we will proceed with additional diagnostics to further understand the patient's acute rise in blood pressure Subjective: denies chest pain headache improved Objective: Vital Signs Temp Pulse Resp BP Pulse Ox 37.0 C 71 13 122/53 H 93 08/13/16 12:00 08/13/16 14:00 08/13/16 14:00 08/13/16 14:00 08/13/16 14:00 Laboratory Results 08/13/16 05:10 08/13/16 12:20 08/12/16 08/13/16 08/14/16 05:59 05:59 05:59 Intake Total 2275 50 Output Total 1400 450 Balance 875 -400 - Physical Exam Constitutional: appears nourished Eyes: anicteric sclera Ears, Nose, Mouth, Throat: moist mucous membranes Cardiovascular: regular rate and rhythym Respiratory: no respiratory distress, no rales or rhonchi Gastrointestinal: normoactive bowel sounds, soft, non-tender abdomen Genitourinary: no bladder fullness Skin: warm, normal color Musculoskeletal: No asymmetric calves Neurologic: No AAOx3 Psychiatric: flat affect Lymph, Heme, Immunologic: no cervical LAD ICD10 Worksheet Patient Problems: Problems Problem Status Diagnosed Hypertension Acute Hypokalemia Acute Positional vertigo Acute
[2016-08-14] MEDS: niCARdipine/NACL 200 ML IV SCH (01:24)
[2016-08-14 05:13] LABS: HEMOGLOBIN 13.4 g/dL (12.6-16.3); MEAN CELL HEMOGLOBIN 28.8 pg (27.9-34.1); MEAN CELL HEMOGLOBIN CONCENTR. 33.5 g/dL (32.4-36.7); MEAN CELL VOLUME 85.8 fL (81.5-99.8); RED BLOOD CELL COUNT 4.66 10^6/uL (4.18-5.33); RED CELL DISTRIBUTION WIDTH 14.3 % (11.5-15.2)
[2016-08-14 05:39] LABS: ANION GAP 10 mEq/L (8-16); CARBON DIOXIDE 22 mEq/l (22-31); CHLORIDE 106 mEq/L (97-110); CREATININE 0.6 mg/dL (0.6-1.0); GLOMERULAR FILTRATION RATE > 60; GLUCOSE 84 mg/dL (70-100); MAGNESIUM 1.7 mg/dL (1.6-2.3); POTASSIUM 3.5 mEq/L (3.5-5.2); SODIUM 138 mEq/L (134-144)
[2016-08-14] MEDS: NS W/ 20 KCl/L 1,000 ML IV SCH ×2 (06:33→22:52)
--- NOTE | 2016-08-14 06:52 | GCON ---
[f rep st] CONSULTATION NEPHROLOGY CONSULTATION. DATE OF CONSULTATION: 08/13/2016 REASON FOR CONSULTATION: New onset severe hypertension. HISTORY OF PRESENT ILLNESS: This is a 66-year-old female, with no significant past medical history p rior to 5 months ago, at which time she was diagnosed with metastatic colon cancer. She underwent a peritonectomy, along with HIPEC. At this time, the patient was admitted on August 11, with nausea, vomiting, and vertigo. At the time of admission, the patient was severely hypertensive, and quite hy pokalemic. While the patient is alert and oriented x3, I cannot get her to answer other questions co herently. Therefore, the history is primarily taken from the chart and from the medical staff. The patient's history of hypokalemia apparently began around the time of her colon cancer diagnosis. Per the records, she has been on supplemental potassium since that time. However, she has not been hypertensive. As noted above, when the patient presented to [facility] on August 11, her blo od pressure was near 200/100. The patient was placed on a Cardene drip, and since that time her bloo d pressure has been well controlled. Her potassium has been supplemented, and her most recent level is up to 3.8. Her other electrolytes appear normal, and her serum creatinine level is 0.7. Currentl y, her blood pressure is 137/71. Since her admission, she has had an extensive evaluation. The patient has had some decrease in menta l status, and has had some headache. Thus far, her evaluation has included CT angiograms of the neck and brain which looked normal, as well as an MRI which showed a moderate amount of white matter dise ase. Her vertigo appears to have resolved. Attempts were made at 1 point to reduce her nicardipine drip, but her blood pressure again alexsander. In reviewing her past records, she did undergo an abdominal CAT scan last June. This was with deven العلي. There were no abnormalities noted in the adrenal glands. Her kidneys appeared relatively no rmal with the exception of some mild right hydronephrosis. An evaluation for secondary causes of hypertension has been initiated, including a renin level, aldos terone level, as well as catecholamine levels. A 24-hour urine has also been requested for catechola mines. Relating to these issues, we are asked by Dr. Saunders to assist the patient's renal diagnosis a nd management. PAST MEDICAL HISTORY: Metastatic colon cancer, followed by Dr. Mandie Aguirre. PAST SURGICAL HISTORY: 1. Peritonectomy. 2. Appendectomy. ALLERGIES: No known allergies. HOME MEDICATIONS: Iron supplement, potassium supplement, some herbal supplements. I do not know spe cifically what the latter are. CURRENT MEDICATIONS: Cardene drip, Ativan p.r.n., meclizine p.r.n., ondansetron p.r.n., potassium ch loride p.r.n., Percocet p.r.n. SOCIAL HISTORY: The patient is . She lives alone. She does not smoke cigarettes. She occas ionally drinks alcohol. REVIEW OF SYSTEMS: This was not really obtainable at the present time. PHYSICAL EXAM: VITAL SIGNS: Temperature afebrile, pulse 66, blood pressure 137/71. HEENT: Eyes, sc lerae clear. Oropharynx clear. NECK: No lymphadenopathy or thyromegaly. LUNGS: Clear to auscult ation bilaterally. CARDIOVASCULAR: Regular rate and rhythm without gallops or rubs. ABDOMEN: Nont patricia. No organomegaly. AND RECTAL: Deferred. EXTREMITIES: No lower extremity edema. INTEGUMEN T: Generally clear. NEURO: The patient is moving all extremities voluntarily. She is able to answe r the name of the president, the year, her name, and location. She responds slowly. However, upon a sking her any other question she is really unable to answer, and simply just says "crazy, crazy, craz y". LABORATORY STUDIES: Sodium 140, potassium 3.3, chloride 107, bicarb 23, creatinine 0.7, bilirubin 1. 5, albumin 3.3. IMPRESSION AND PLAN: 1. New onset hypertension. At this point, the patient appears to have accelerated hypertension of u nknown etiology. It responds well to calcium channel ric therapy. At this point, she does not a ppear to have posterior reversible encephalopathy syndrome (PRES). Adrenal imaging in the past has b een normal. She is on some herbal supplements. I do not know what they are, but licorice supplement s could potentially cause a hyperaldosteronism type picture. I am reluctant to correlate her hypokal emia with hyperaldosteronism, however, as she has had hypokalemia for approximately 5 months per hist ory, without hypertension. Nevertheless, it is reasonable to rule these out. I do not see that she truly has malignant hypertension at this time. However, some of our testing for secondary causes of hypertension may be difficult in the acute setting. 2. Hypokalemia. Please see above. Again, in the setting of hypertension, it is certainly attractiv e to invoke hyperaldosteronism. However, it is unclear if she really had hypertension for the majori ty of time she has been hypokalemic. I also at this time do not know if she specifically has renal o r GI wasting. I believe this will be best assessed in the outpatient setting. Presently, she is rec eiving a potassium containing IV. We will continue to follow and evaluate. 3. Neurologic changes. Presently, she has received narcotic therapy. Her orientation may actually be improving. The fact that she has white matter disease may actually reflect that she has had some hypertension in the past. We will discuss further with the physicians in the morning. Thank you for allowing us to participate in this pleasant lady's care. We will continue following tio urbina with you. /[id number]/MODL
[2016-08-14] MEDS ORDERED: POTASSIUM CL 10 MEQ TAB PO ONE ×2 (07:55→21:56)
--- NOTE | 2016-08-14 09:05 | SOAPPROG ---
SOAP Progress Note Assessment/Plan: Assessment: 1. Hypertension. In setting of hypokalemia and inappropriately high urine K excretion. Miles/PRA/plasma and urine metanephrines ordered. BP only mildly elevated. Reported hx of herbal supplement intake, pt denies. Would be helpful if this could be brought in by family if pt was taking. Would wean cardene. Not clear if she will require chronic antihypertensives yet. If SBP running consistently > 150 start low dose amlodipine 2.5-5 mg. RAIN seems unlikely but would consider RA dopplers. 2. Hypokalemia. Hx unclear but seems like started after omentectomy. Reportedly had partial colectomy as well as recent N/V. Labs suggest renal loss but in setting of receiving IV K, will need to keep this in mind. K replete. Switch ivf to po supplements if able to take po well today. 3. AMS. No e/o PRES on CT. Unclear b/l. If due to htn should be improving by now. Plan: 08/14/16 09:05 08/14/16 09:06 08/14/16 09:08 08/14/16 09:15 08/14/16 09:19 08/14/16 09:21 08/14/16 09:24 Subjective: Cardene drip resumed again over night, although highest documented BP was 155/ 73. Tapering down. Pt unable to give me any reliable details of recent history. Objective: Vital Signs Temp Pulse Resp BP Pulse Ox 36.7 C 72 14 122/61 H 93 08/14/16 04:00 08/14/16 08:00 08/14/16 08:00 08/14/16 08:00 08/14/16 08:00 Laboratory Results 08/14/16 05:00 08/14/16 05:00 08/13/16 08/14/16 08/15/16 05:59 05:59 05:59 Intake Total 2275 2550 Output Total 1400 2500 Balance 875 50 In bed. Alert but does unable to give coherent history RRR, no m/g/r CTAB Abdom soft, nt No LE edema ICD10 Worksheet Patient Problems: Problems Problem Status Diagnosed Hypertension Acute Hypokalemia Acute Positional vertigo Acute
[2016-08-14] MEDS: OXYCODONE/APAP 5/325 TAB PO PRN (09:16)
[2016-08-14] MEDS: DILTIAZEM 30 MG TAB PO SCH ×3 (11:24→23:38)
[2016-08-14] MEDS: ACET/CAFFEINE/BUTA FIORICET 1 EACH TAB PO PRN ×2 (11:48→18:31)
--- NOTE | 2016-08-14 14:03 | PDINTPN ---
Retail Shift Supervisor Progress Note Assessment/Plan: Assessment/plan: * Altered mental status- I suspect primarily from hypertensive urgencies which appear paroxysmal. No evidence for CVA, PRES, or subtle changes on both CT and MRI. Much better today and oriented x3 * HTN- continues to be problematic. changed cardene drip to dilt today, but may consider amlodipine as suggested * Hypokalemia- appreciate renal consult. labs still pending. agree with oral replacement. ?herbals * Hx colon cancer in remission * YANEZ- recurrent 08/13/16 14:55 08/13/16 15:04 08/14/16 14:00 08/14/16 14:05 Objective: Vital Signs Temp Pulse Resp BP Pulse Ox 36.7 C 67 13 131/71 H 93 08/14/16 04:00 08/14/16 13:00 08/14/16 13:00 08/14/16 13:00 08/14/16 13:00 Laboratory Results 08/14/16 05:00 08/14/16 05:00 08/13/16 08/14/16 08/15/16 05:59 05:59 05:59 Intake Total 2275 2550 Output Total 1400 2500 400 Balance 875 50 -400 Physical Exam - Physical Exam General Appearance: alert, no apparent distress EENT: PERRL/EOMI, normal ENT inspection Neck: full range of motion, supple Respiratory: lungs clear, normal breath sounds, No respiratory distress Cardiac/Chest: normal peripheral pulses, regular rate, rhythm, No systolic murmur Abdomen: normal bowel sounds, non-tender, soft Skin: normal color, warm/dry, No rash Lymphatic: No no adenopathy Extremities: No pedal edema, No calf tenderness Neuro/Psych: alert, normal mood/affect, oriented x 3 ICD10 Worksheet Patient Problems: Problems Problem Status Diagnosed Hypertension Acute Hypokalemia Acute Positional vertigo Acute
--- NOTE | 2016-08-14 16:13 | US ---
Complete Renal Ultrasound With Doppler/duplex imaging, ultrasound abdomen retroperitoneal complete Indication: Hypertension. Comparison: None. Findings: The kidneys are normal size. No hydronephrosis, or focal scarring. In the lower pole right kidney t here is a nonobstructing 5-mm calyceal calculus. The echogenicity is normal. Renal Measurements: Right: 11.2 x 4.8 x 5 cm. Left kidney measures 10.2 x 5.4 x 4.1 cm Renal Parenchymal Thickness: Right: 1.5 cm Left: 1.3 cm Doppler Evaluation: RAR - Renal artery PSV/Aortic PSV ( Normal is < 3.5) Right: 0.99 Left: 0.53 Right Kidney: Peak systolic velocities in the main renal artery as follows: Proximal: 20 ms Mid: 32 ms Distal: 24 ms Left Kidney: Peak systolic velocities in the main renal artery as follows: Proximal: 20 ms Mid: 24 ms Distal: 44 ms Bilateral renal veins are patent with normal waveforms. Patent bilateral ureteral jets. Bladder conto ur is unremarkable. Impression: 1. No hydronephrosis. 2. Nonobstructive right nephrolithiasis 3. No ultrasound evidence of renal artery stenosis. 4. Suggest CT angiogram renal arteries for further evaluation if clinically indicated.
--- NOTE | 2016-08-14 16:30 | HOSPPROG ---
Hospitalist Progress Note Assessment/Plan: # hypertensive urgency- required have re-initiation of nicardipine drip yesterday for systolic blood pressure greater than 180 telemetry( personally reviewed and interpreted) sinus rhythm - transitioning to oral agents - workup initiated to rule out renin/angiotensin abnormality and pheochromocytoma - ultrasound of the kidneys order to rule out renal artery stenosis # vertigo/headache- suspecting related to hypertensive urgency - MRI head( personally reviewed and interpreted) without acute stroke or bleed oxygen saturations 93% on room air - trying oral agents for headache control # hypokalemia- potassium 3.5 this morning- chronic-on twice daily potassium supplementation as an outpatient- etiology unclear - renin aldosterone ratio pending - continue p.r.n. repletion # history of metastatic colon cancer diagnosed 2013- was in remission # diet taking p.o. # DVT prophylaxis- can start Lovenox if the brain imaging normal # disposition greater than 2 midnights as still requiring IV medications for blood pressure control discussed the case with Dr. Saunders we will treat headache with Fioricet and see the response ultrasound ordered Subjective: headache persists Objective: Vital Signs Temp Pulse Resp BP Pulse Ox 36.7 C 69 17 110/92 H 99 08/14/16 04:00 08/14/16 16:00 08/14/16 16:00 08/14/16 16:00 08/14/16 16:00 Laboratory Results 08/14/16 05:00 08/14/16 05:00 08/13/16 08/14/16 08/15/16 05:59 05:59 05:59 Intake Total 2275 2550 Output Total 1400 2500 400 Balance 875 50 -400 - Physical Exam Constitutional: appears nourished Eyes: anicteric sclera Ears, Nose, Mouth, Throat: moist mucous membranes Cardiovascular: regular rate and rhythym Respiratory: no respiratory distress, no rales or rhonchi Gastrointestinal: normoactive bowel sounds, soft, non-tender abdomen Genitourinary: no bladder fullness Skin: warm, normal color Musculoskeletal: No asymmetric calves Neurologic: AAOx3 Psychiatric: interacting appropriately, not anxious Lymph, Heme, Immunologic: no cervical LAD ICD10 Worksheet Patient Problems: Problems Problem Status Diagnosed Hypertension Acute Hypokalemia Acute Positional vertigo Acute
[2016-08-14 19:30] LABS: POTASSIUM 3.5 mEq/L (3.5-5.2)
[2016-08-14] MEDS ORDERED: POTASSIUM CL 10 MEQ TAB ONE (22:52)
[2016-08-15] MEDS: niCARdipine/NACL 200 ML IV SCH (02:14)
[2016-08-15 06:12] LABS: ANION GAP 13 mEq/L (8-16); CARBON DIOXIDE 20 mEq/l (22-31); CHLORIDE 106 mEq/L (97-110); CREATININE 0.5 mg/dL (0.6-1.0); GLOMERULAR FILTRATION RATE > 60; GLUCOSE 91 mg/dL (70-100); MAGNESIUM 1.4 mg/dL (1.6-2.3); POTASSIUM 3.6 mEq/L (3.5-5.2); SODIUM 139 mEq/L (134-144)
[2016-08-15] MEDS: DILTIAZEM 30 MG TAB PO SCH ×3 (07:15→18:23)
[2016-08-15 10:29] LABS: ALDOSTERONE SERUM <4.0 ng/dL (<=21)
--- NOTE | 2016-08-15 11:20 | SOAPPROG ---
SOAP Progress Note Assessment/Plan: Assessment: 1. Hypertension. In setting of hypokalemia and possible inappropriately high urine K excretion. Miles < 4. PRA/plasma and urine metanephrines pending. RA dopplers negative. Reported hx of herbal supplement intake, pt denies. Would be helpful if this could be brought in by family if pt was taking. Will try to d/w sister today. Can uptitrate dilt or switch to amlodipine. D/c NS. KORY/ARB could be added once taking po well. Aldactone could possibly be used once eval complete. 2. Hypokalemia. Hx unclear but seems like started after omentectomy. Per Dr. Aguirre had IP mitomycin C. Reportedly had partial colectomy but Dr. Aguirre does not think she has had diarrhea. Labs suggest renal loss but in setting of receiving IV K, will need to keep this in mind. K replete. If renal losses, could be tubular injury from IP chemo, other. Would hold K supplements today. IF k low tomorrow, check TTKG. 3. AMS. No e/o PRES on CT. Unclear b/l. Possibly improving. 4. Hypomagnesemia. Replace. 5. Acidosis. [place]. Likely due to NS infusion. D/c IVF. Plan: 08/15/16 11:42 Subjective: Weaned off cardene yesterday, started diltiazem. BP back up o/n, started back on cardene but again weaned off. No new complaints today. Objective: Vital Signs Temp Pulse Resp BP Pulse Ox 36.9 C 75 15 105/90 H 96 08/15/16 04:00 08/15/16 07:15 08/15/16 06:00 08/15/16 07:15 08/15/16 06:00 Laboratory Results 08/14/16 05:00 08/15/16 05:30 08/14/16 08/15/16 08/16/16 05:59 05:59 05:59 Intake Total 2550 1985 Output Total 2500 1300 Balance 50 685 Tired, slightly confused, in chair. Oriented to place, not day RRR, no m/g/r CTAB Abdom soft, nontender No LE edema ICD10 Worksheet Patient Problems: Problems Problem Status Diagnosed Hypertension Acute Hypokalemia Acute Positional vertigo Acute
[2016-08-15] MEDS ORDERED: MAGNESIUM SULF 2 GM/WATER 50 ML IV ONE (12:05)
--- NOTE | 2016-08-15 14:09 | PDINTPN ---
Stratigrapher Progress Note Assessment/Plan: Assessment/plan: * Altered mental status- I suspect primarily from hypertensive urgencies which appear paroxysmal. No evidence for CVA, PRES, or subtle changes on both CT and MRI. Still with periods of confusion and elevated BP. Neurology consult suggested repeat MRI to look for PRES. Possible migraines? * HTN- continues to be problematic. OK on dilt 30 qid but may need higher dose or additional agent. * Hypokalemia- appreciate renal consult. Holding replacement for now to allow for calculation of TTK gradient. * Hx colon cancer in remission * YANEZ- recurrent Objective: Vital Signs Temp Pulse Resp BP Pulse Ox 36.9 C 67 15 157/91 H 96 08/15/16 04:00 08/15/16 12:47 08/15/16 06:00 08/15/16 12:47 08/15/16 06:00 Laboratory Results 08/14/16 05:00 08/15/16 05:30 08/14/16 08/15/16 08/16/16 05:59 05:59 05:59 Intake Total 2550 1985 Output Total 2500 1300 Balance 50 685 Physical Exam - Physical Exam General Appearance: alert, other (intermittent confusion) EENT: PERRL/EOMI, normal ENT inspection Neck: full range of motion, supple Respiratory: lungs clear, normal breath sounds, No respiratory distress, No rales, No wheezing Cardiac/Chest: normal peripheral pulses, regular rate, rhythm, No edema Abdomen: normal bowel sounds, non-tender, soft Skin: normal color, warm/dry, No rash Extremities: No pedal edema Neuro/Psych: no motor/sensory deficits, alert ICD10 Worksheet Patient Problems: Problems Problem Status Diagnosed Hypertension Acute Hypokalemia Acute Positional vertigo Acute
--- NOTE | 2016-08-15 14:52 | HOSPPROG ---
Hospitalist Progress Note Assessment/Plan: # hypertensive urgency- required have re-initiation of nicardipine drip overnight for systolic blood pressure greater than 180 telemetry( personally reviewed and interpreted) sinus rhythm renal ultrasound ( reviewed) negative for renal artery stenosis - continue oral calcium channel ric - workup initiated to rule out renin/angiotensin abnormality and pheochromocytoma # acute intermittent encephalopathy- this seem to improve in the preceding 24 hours but has recurred this morning - discussing with Neurology benefit of repeat MRI # vertigo/headache- suspecting related to hypertensive urgency - MRI head ( personally reviewed and interpreted) without acute stroke or bleed oxygen saturations 93% on room air - Fioricet p.r.n. - discussed the case with Neurology will order repeat MRI to rule out the diagnosis of posterior reversible encephalopathy syndrome PRES # hypokalemia- potassium 3.6 this morning- chronic-on twice daily potassium supplementation as an outpatient- etiology unclear - renin aldosterone ratio pending - stopping p.r.n. repletion per Nephrology so we can better understand the patient's natural potassium management # history of metastatic colon cancer diagnosed 2013- in remission # diet taking p.o. # DVT prophylaxis- Lovenox # disposition greater than 2 midnights - still requiring IV medications for blood pressure control in diagnostics related to her headache and vertigo discussed the case with Dr. Hickey- constellation of symptoms very suspicious for PRES syndrome Subjective: recurrent headache today feeling very dizzy when up with physical therapy Objective: Vital Signs Temp Pulse Resp BP Pulse Ox 36.7 C 67 19 157/91 H 95 08/15/16 10:00 08/15/16 12:47 08/15/16 10:00 08/15/16 12:47 08/15/16 10:00 Laboratory Results 08/14/16 05:00 08/15/16 05:30 08/14/16 08/15/16 08/16/16 05:59 05:59 05:59 Intake Total 2550 1985 Output Total 2500 1300 Balance 50 685 - Physical Exam Constitutional: appears nourished Eyes: anicteric sclera, other ( right pupil slightly larger than left) Ears, Nose, Mouth, Throat: moist mucous membranes Cardiovascular: regular rate and rhythym Respiratory: no respiratory distress, no rales or rhonchi Gastrointestinal: normoactive bowel sounds Genitourinary: no bladder fullness Skin: warm, normal color Musculoskeletal: No asymmetric calves Neurologic: AAOx3 Psychiatric: flat affect Lymph, Heme, Immunologic: no cervical LAD ICD10 Worksheet Patient Problems: Problems Problem Status Diagnosed Hypertension Acute Hypokalemia Acute Positional vertigo Acute
--- NOTE | 2016-08-15 14:56 | MR ---
MRI of the Brain (Without Contrast) at 1307 Hours Clinical Indications: Posterior reversible encephalopathy syndrome. Comparison: MRI brain August 13, 2016. Technique: T1-weighted images were acquired axially and sagittally from the foramen magnum to the ve rtex. Axial fast inversion-recovery, fast T2-weighted, and diffusion-weighted axial images were obta ined without contrast. Findings: The ventricles, cisterns, and sulci are normal without atrophy, hydrocephalus, midline jarocho ft, herniation, or epidural/subdural hematomas. Throughout the white matter of bilateral cerebral hem ispheres, there are multiple predominantly subcentimeter nonspecific hyperintense T2/FLAIR signal abn ormalities without hemorrhage or mass effect. There is evidence of subarachnoid hemorrhage in the bas ilar cisterns anterior left to the sangita and in the suprasellar region which is new since two days ago . There is slight hyperintense subcentimeter area of signal in the mesial aspect of the right cerebel lar hemisphere without restricted diffusion which was present on the prior study. Diffusion-weighted sequence demonstrates no acute infarct. Cerebellar tonsils are in normal position. Pituitary gland is normal in size. Normal signal flow voids in the superior sagittal sinus, basilar artery, and bilater al internal carotid arteries indicating patency. Paranasal sinuses and mastoid air cells are clear. Impression: 1. Acute subarachnoid hemorrhage in the prepontine and basilar cisterns which may be secondary to hyp ertension, ruptured aneurysm, or trauma. This was not present two days ago on recent MRI brain. 2. Multiple nonspecific hyperintense T2/FLAIR signal abnormalities in the white matter of bilateral c erebral hemispheres. Differential diagnosis includes moderate microvascular ischemic gliosis, versus less likely migraine-related sequela, atypical demyelinating disease, or postinfectious/post inflamma tory sequela. 3. Subcentimeter focus of hyperintense T2 and diffusion signal in the mesial aspect of the right cere bellar hemisphere which was present on recent MRI may represent microvascular ischemic gliosis or min imal posterior reversible encephalopathy syndrome. 4. Recommend CTA brain for further evaluation of the subarachnoid hemorrhage. Findings and recommendations discussed with Dr. Laith Hickey today at 1445 hours. A Document Only message has been documented for Laith Hickey MD in the [employer] system on 08/15/2016 14:51, Message ID [id number].
--- NOTE | 2016-08-15 20:24 | GCON ---
[f rep st] CONSULTATION NEUROLOGY CONSULT DATE OF CONSULTATION: 08/15/2016 REFERRING PHYSICIAN: Juliana Lira MD CHIEF COMPLAINT: Encephalopathy. HISTORY: The patient is a very pleasant 66-year-old lady, who was admitted on August 11, 2016 for dizziness and nausea, described further as vertigo. She was found to be in hypertensive urgency with initial blood pressures in the 180s over 200 systolic and low potassium. She subsequently has been in a waxing and waning hypertensive crisis with paroxysms of hypertension in the 200s. She states she has had greatly fluctuating blood pressures from 105 to as high as 201 over 119 diastolic. In this setting, the patient has had headaches, confusion, and vertigo. She has had a CT of the head, CTA of the head and neck. CTA of the head and neck showed no aneurysm or vascular abnormalities. Head CT showed no acute abnormalities. She has had 2 brain MRIs, 1 done on the and 1 done today. On brain MRI, there are some subtle changes of posterior reversible encephalopathy syndrome on the T2 and diffusion weighted images. In addition, on today's MRI there is possible a minor amount of subarachnoid hemorrhage in the prepontine and basilar cisterns versus artifact. REVIEW OF SYSTEMS: Ten-point review of systems was done only pertinent to the HPI. For past medical history, social history, family history, home medications, and allergies, please refer to the history and physical dated 08/11/[address] Madera. PHYSICAL EXAM: VITAL SIGNS: Current blood pressure is 156/86. She is afebrile at 36.7, heart rate 70, satting at 95%. NEUROLOGIC: She is awake, alert, conversant. 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 She has decreased hearing and vision at baseline, and is not wearing her contact lenses or hearing aids on my exam. She was able to read some samples I gave her and correctly identified how many fingers I was holding up in all visual sam. No cranial nerve deficits outside of the congenital exotropia. On motor exam, she had normal strength, tone, and deep tendon reflexes throughout. Sensory exam: Normal to light touch throughout. Coordination: Normal in upper and lower extremities. IMPRESSION/PLAN: #1 Hypertensive encephalopathy Overall, her history is most consistent with a hypertensive encephalopathy with some subtle changes of posterior reversible encephalopathy syndrome (PRES) on MRI brain. In addition, the MRI today shows some possible subarachnoid hemorrhage in the basilar cisterns. We will follow this up with a head CT without contrast tomorrow morning to reassess. The CT angiography of the head and neck done just 3 days ago shows no aneurysm. Therefore, if there is subarachnoid hemorrhage, it would be likely due to her hypertensive crisis. This was all discussed in detail with the patient and her sister. Assuming this is all hypertensive encephalopathy, they were counseled that it could take weeks for full resolution of her symptoms. This is predicated upon tight blood pressure control. This is being currently worked up and managed by the hospital medicine team, along with other consultants. I will follow up after the head CT without contrast is done for further recommendations. Thank you for this consult. /[id number]/MODL MTDD
[2016-08-16] MEDS: DILTIAZEM 30 MG TAB PO SCH ×3 (00:39→12:10)
[2016-08-16] MEDS: ACET/CAFFEINE/BUTA FIORICET 1 EACH TAB PO PRN (04:35)
[2016-08-16] MEDS: ONDANSETRON 4 MG/2 ML VIAL IVP PRN (04:36)
[2016-08-16] MEDS: MECLIZINE HCL 25 MG TAB PO PRN (04:36)
[2016-08-16 05:06] LABS: ANION GAP 14 mEq/L (8-16); CARBON DIOXIDE 19 mEq/l (22-31); CHLORIDE 108 mEq/L (97-110); CREATININE 0.6 mg/dL (0.6-1.0); GLOMERULAR FILTRATION RATE > 60; GLUCOSE 102 mg/dL (70-100); MAGNESIUM 1.7 mg/dL (1.6-2.3); POTASSIUM 3.2 mEq/L (3.5-5.2); SODIUM 141 mEq/L (134-144)
[2016-08-16] MEDS ORDERED: MAGNESIUM SULF 1 GM/DEXTROSE 100 ML IV ONE (05:31)
--- NOTE | 2016-08-16 08:26 | CT ---
CT Head Without Contrast History: Follow-up subarachnoid hemorrhage. Comparison: MR brain August 15, 2016, CT head August 11, 2016. Technique: Axial unenhanced images were obtained from the vertex through the skull base. Dose reducti on techniques were utilized. Findings: Garg-white differentiation is preserved. Scattered nonspecific white matter hypodensities m ay be related to chronic microvascular ischemic gliosis. There is no evidence of acute infarct. There is no midline shift or mass effect. No extra-axial fluid collections are identified. There is no vis ible hemorrhage. Minimal mucous membrane thickening is present in the paranasal sinuses. The mastoid air cells are clear. No displaced fracture is identified. Impression: No visible subarachnoid hemorrhage. The finding on the recent MR was likely related to ar tifact. Dr. Daniel Brown reviewed the study and agrees with the findings.
--- NOTE | 2016-08-16 09:52 | SOAPPROG ---
IVETH Progress Note Assessment/Plan: Assessment:Plan: Hypokalemia-keep off replacement for next 24 hours -spot levels requested for today are pending -potassium level low this morning -will obtain 24 hour urine now to evaluate further -will get 24 hour cortisol at this time for convenience -magnesium level 1.7 today -keep off K sparing diuretics for now HTN-stable overnite -would keep in current range -evaluation for secondary causes in progress -given aldosterone level < 4, hyperaldo appears to be excluded -patient describes onset of flu with N/V for one week -she does not describe high BP being identified prior to that time -she has no clinical features to suggest Cushings, although her skin pigmentation is more than I would expect for someone who has not been in the sun for the last three months or so. -will check ACTH level -plasma catecholamines are pending Neuro-Dr. Hickey's note reviewed -PRES -possible subarachnoid hemorrhage 08/16/16 09:53 Subjective: remains confused Objective: Vital Signs Temp Pulse Resp BP Pulse Ox 36.6 C 61 13 144/89 H 98 08/16/16 08:00 08/16/16 08:00 08/16/16 06:00 08/16/16 08:00 08/16/16 08:00 Laboratory Results 08/14/16 05:00 08/16/16 04:43 08/15/16 08/16/16 08/17/16 05:59 05:59 05:59 Intake Total 1985 1270 Output Total 1300 Balance 685 1270 Physical Exam - Physical Exam General Appearance: alert, no apparent distress, other (confused) EENT: normal ENT inspection Neck: normal inspection Respiratory: lungs clear, normal breath sounds, No respiratory distress Cardiac/Chest: regular rate, rhythm, No diastolic murmur, No systolic murmur Abdomen: normal bowel sounds, non-tender, soft Skin: other (possible hyperpigmentation) Extremities: No swelling ICD10 Worksheet Patient Problems: Problems Problem Status Diagnosed Hypertension Acute Hypokalemia Acute Positional vertigo Acute
[2016-08-16 10:22] LABS: RANDOM URINE POTASSIUM 55.4 mEq/L (0.5-35.0)
--- NOTE | 2016-08-16 12:29 | PDINTPN ---
Heavy Equipment Technician Progress Note Assessment/Plan: Assessment/plan: * Altered mental status- Improving today. Repeat MRI c/w PRES per neurology. Antivipate improving MS with BP control and time. No CVA. Head CT today does not show ICH, though there were some suggestions on MRI. * HTN- changed to amlodipine today. * Hypokalemia- appreciate renal consult. Additional studies still pending, but hyperaldo and RAIN have been ruled out so far. * Hx colon cancer in remission * YANEZ- improved and responding to fioracet. 08/16/16 12:26 Objective: Vital Signs Temp Pulse Resp BP Pulse Ox 36.1 C 78 16 133/120 H 98 08/16/16 11:37 08/16/16 12:13 08/16/16 11:37 08/16/16 12:13 08/16/16 11:37 Laboratory Results 08/14/16 05:00 08/16/16 04:43 08/15/16 08/16/16 08/17/16 05:59 05:59 05:59 Intake Total 1985 1270 Output Total 1300 Balance 685 1270 Physical Exam - Physical Exam General Appearance: alert, no apparent distress, other (much more clear MS today ) EENT: PERRL/EOMI, normal ENT inspection Neck: non-tender, supple Respiratory: lungs clear, normal breath sounds, No respiratory distress, No accessory muscle use, No rales Cardiac/Chest: normal peripheral pulses, regular rate, rhythm, No edema Abdomen: normal bowel sounds, non-tender, soft, No organomegaly Skin: normal color, warm/dry, No rash Lymphatic: No no adenopathy Extremities: non-tender, No pedal edema Neuro/Psych: alert, normal mood/affect, oriented x 3, No abnormal epic anesthesia analyst II-XII ICD10 Worksheet Patient Problems: Problems Problem Status Diagnosed Hypertension Acute Hypokalemia Acute Positional vertigo Acute
[2016-08-16 14:15] LABS: RENIN ACTIVITY PLASMA 1.8 ng/mL/h (())
--- NOTE | 2016-08-16 15:13 | NEUROPROG ---
Assessment: 1. Hypertensive encephalopathy head CT shows there is now intracranial hemorrhage. MRI findings were likely artifact in regard to subarachnoid hemorrhage findings. MRI did show very subtle signal changes suggesting some mild PRES. mental status improved today per ICU team. Full resolution of NECKTIE TURNER symptoms may take weeks with tight control blood pressure. No further recommendations now. We will sign off and follow up p.r.n. Please do not hesitate to call if there are any further neurologic changes or questions. Subjective: Mental status improved further Objective: Vital Signs Temp Pulse Resp BP Pulse Ox 36.1 C 78 16 133/120 H 98 08/16/16 11:37 08/16/16 12:13 08/16/16 11:37 08/16/16 12:13 08/16/16 11:37 Laboratory Results 08/14/16 05:00 08/16/16 04:43 08/15/16 08/16/16 08/17/16 05:59 05:59 05:59 Intake Total 1985 1270 Output Total 1300 Balance 685 1270 no convulsive activity noted Allergies/Adverse Reactions: No Known Allergies Allergy (Unverified 08/11/16 07:10)
--- NOTE | 2016-08-16 16:30 | HOSPPROG ---
Hospitalist Progress Note Assessment/Plan: hypertensive urgency- required have re-initiation of nicardipine drip overnight for systolic blood pressure greater than 180 telemetry( personally reviewed and interpreted) sinus rhythm renal ultrasound ( reviewed) negative for renal artery stenosis - continue oral calcium channel ric - workup initiated to rule out renin/angiotensin abnormality and pheochromocytoma acute intermittent encephalopathy- this seem to improve in the preceding 24 hours but has recurred this morning - c/w resolving PRES vertigo/headache- suspecting related to hypertensive urgency - MRI head ( personally reviewed and interpreted) without acute stroke or bleed oxygen saturations 93% on room air - Fioricet p.r.n. - discussed the case with Neurology will order repeat MRI to rule out the diagnosis of posterior reversible encephalopathy syndrome PRES hypokalemia- potassium 3.2 this morning- chronic-on twice daily potassium supplementation as an outpatient- etiology unclear - renin aldosterone ratio pending - stopping p.r.n. repletion per Nephrology so we can better understand the patient's natural potassium management history of metastatic colon cancer diagnosed 2013- in remission diet taking p.o. DVT prophylaxis- Lovenox disposition greater than 2 midnights - still requiring IV medications for blood pressure control in diagnostics related to her headache and vertigo Subjective: decreased hallucinations. case d/w dr conway Objective: Vital Signs Temp Pulse Resp BP Pulse Ox 37.1 C 72 18 144/78 H 97 08/16/16 15:36 08/16/16 15:36 08/16/16 15:36 08/16/16 15:36 08/16/16 15:36 Laboratory Results 08/14/16 05:00 08/16/16 04:43 08/15/16 08/16/16 08/17/16 05:59 05:59 05:59 Intake Total 1985 1270 Output Total 1300 Balance 685 1270 - Physical Exam Constitutional: no apparent distress, appears nourished Eyes: PERRL, anicteric sclera Ears, Nose, Mouth, Throat: moist mucous membranes, hearing normal Cardiovascular: regular rate and rhythym, no murmur, rub, or gallop Respiratory: no respiratory distress, no rales or rhonchi Gastrointestinal: normoactive bowel sounds, soft, non-tender abdomen Genitourinary: no bladder fullness, No puentes in urethra Skin: warm, normal color Musculoskeletal: full muscle strength Neurologic: AAOx3 Psychiatric: interacting appropriately ICD10 Worksheet Patient Problems: Problems Problem Status Diagnosed Hypertension Acute Hypokalemia Acute Positional vertigo Acute
[2016-08-16] MEDS: amLODIPine BESYLATE 5 MG TAB PO SCH (16:50)
[2016-08-17 05:49] LABS: ANION GAP 11 mEq/L (8-16); CALCIUM 10.1 mg/dL (8.5-10.4); CARBON DIOXIDE 23 mEq/l (22-31); CHLORIDE 107 mEq/L (97-110); CREATININE 0.7 mg/dL (0.6-1.0); GLOMERULAR FILTRATION RATE > 60; GLUCOSE 102 mg/dL (70-100); MAGNESIUM 1.8 mg/dL (1.6-2.3); POTASSIUM 3.1 mEq/L (3.5-5.2); SODIUM 141 mEq/L (134-144)
[2016-08-17] MEDS ORDERED: MAGNESIUM SULF 1 GM/DEXTROSE 100 ML IV ONE (08:36)
--- NOTE | 2016-08-17 08:56 | SOAPPROG ---
IVETH Progress Note Assessment/Plan: Assessment:Plan: Hypokalemia-keep off replacement until 24 hour urine complete -spot levels low -potassium level low this morning -will obtain 24 hour urine now to evaluate further -will get 24 hour cortisol at this time for convenience to avoid need for multiple 24 hour collections -magnesium level = 1.8 -keep off K sparing diuretics for now HTN-stable overnite -would keep in current range -evaluation for secondary causes in progress -given aldosterone level < 4, hyperaldo appears to be excluded -patient describes onset of flu with N/V for one week -she does not describe high BP being identified prior to that time -she has no clinical features to suggest Cushings, although her skin pigmentation is more than I would expect for someone who has not been in the sun for the last three months or so. -will check ACTH level -plasma catecholamines are pending -renin level 1.8 Neuro-Dr. Hickey's note reviewed -PRES -no subarachnoid hemorrhage 08/17/16 08:56 Subjective: no new complaints Objective: Vital Signs Temp Pulse Resp BP Pulse Ox 36.8 C 76 16 118/68 95 08/17/16 08:00 08/17/16 08:00 08/17/16 08:00 08/17/16 08:00 08/17/16 08:00 Laboratory Results 08/14/16 05:00 08/17/16 05:00 08/16/16 08/17/16 08/18/16 05:59 05:59 05:59 Intake Total 1270 670 Output Total 700 Balance 1270 -30 Physical Exam - Physical Exam General Appearance: WD/WN, alert, no apparent distress EENT: normal ENT inspection Neck: normal inspection Respiratory: lungs clear, normal breath sounds, No respiratory distress Cardiac/Chest: regular rate, rhythm Abdomen: normal bowel sounds, non-tender Extremities: No swelling ICD10 Worksheet Patient Problems: Problems Problem Status Diagnosed Hypertension Acute Hypokalemia Acute Positional vertigo Acute
[2016-08-17] MEDS: amLODIPine BESYLATE 5 MG TAB PO SCH (09:49)
[2016-08-17] MEDS: POTASSIUM CL 20 MEQ TAB PO SCH ×2 (11:39→19:57)
[2016-08-17 13:31] LABS: RANDOM URINE POTASSIUM 42.2 mEq/L (0.5-35.0)
--- NOTE | 2016-08-17 15:03 | HOSPPROG ---
Hospitalist Progress Note Assessment/Plan: hypertensive urgency- on amlopdipine and at goal renal ultrasound ( reviewed) negative for renal artery stenosis - continue oral calcium channel ric - workup initiated to rule out renin/angiotensin abnormality and pheochromocytoma acute intermittent encephalopathy- this seem to improve in the preceding 24 hours but has recurred this morning - c/w resolving PRES vertigo/headache- suspecting related to hypertensive urgency - MRI head ( personally reviewed and interpreted) without acute stroke or bleed oxygen saturations 93% on room air - Fioricet p.r.n. - discussed the case with Neurology will order repeat MRI to rule out the diagnosis of posterior reversible encephalopathy syndrome PRES hypokalemia- potassium 3.2 this morning- chronic-on twice daily potassium supplementation as an outpatient- etiology unclear - renin aldosterone ratio pending - stopping p.r.n. repletion per Nephrology so we can better understand the patient's natural potassium management history of metastatic colon cancer diagnosed 2013- in remission diet taking p.o. DVT prophylaxis- Lovenox disposition greater than 2 midnights - still requiring IV medications for blood pressure control in diagnostics related to her headache and vertigo Subjective: feels more clear today Objective: Vital Signs Temp Pulse Resp BP Pulse Ox 37.0 C 82 18 124/79 H 99 08/17/16 12:00 08/17/16 12:00 08/17/16 12:00 08/17/16 12:00 08/17/16 12:00 Laboratory Results 08/14/16 05:00 08/17/16 05:00 08/16/16 08/17/16 08/18/16 05:59 05:59 05:59 Intake Total 1270 670 Output Total 700 Balance 1270 -30 - Physical Exam Constitutional: no apparent distress, appears nourished Eyes: PERRL, anicteric sclera Ears, Nose, Mouth, Throat: moist mucous membranes, hearing normal Cardiovascular: regular rate and rhythym, no murmur, rub, or gallop Respiratory: no respiratory distress, no rales or rhonchi Gastrointestinal: normoactive bowel sounds, soft, non-tender abdomen Genitourinary: No puentes in urethra Skin: warm Musculoskeletal: full muscle strength Neurologic: AAOx3 ICD10 Worksheet Patient Problems: Problems Problem Status Diagnosed Hypertension Acute Hypokalemia Acute Positional vertigo Acute
[2016-08-18] MEDS ORDERED: MAGNESIUM SULF 1 GM/DEXTROSE 100 ML IV ONE (07:15)
[2016-08-18 07:45] LABS: ANION GAP 10 mEq/L (8-16); CALCIUM 9.8 mg/dL (8.5-10.4); CARBON DIOXIDE 21 mEq/l (22-31); CHLORIDE 110 mEq/L (97-110); CREATININE 0.6 mg/dL (0.6-1.0); GLOMERULAR FILTRATION RATE > 60; GLUCOSE 98 mg/dL (70-100); POTASSIUM 3.8 mEq/L (3.5-5.2); SODIUM 141 mEq/L (134-144)
[2016-08-18] MEDS: POTASSIUM CL 20 MEQ TAB PO SCH ×2 (08:05→21:09)
[2016-08-18] MEDS: amLODIPine BESYLATE 5 MG TAB PO SCH (08:05)
[2016-08-18] MEDS: MECLIZINE HCL 25 MG TAB PO PRN (08:07)
[2016-08-18 08:09] LABS: MAGNESIUM 1.8 mg/dL (1.6-2.3)
[2016-08-18] MEDS: ONDANSETRON 4 MG/2 ML VIAL IVP PRN (08:12)
--- NOTE | 2016-08-18 09:34 | SOAPPROG ---
SOAP Progress Note Assessment/Plan: Assessment:Plan: Hypokalemia-was off replacement until 24 hour urine was completed -spot levels not low -24 hour urine was appropriately low -will get 24 hour cortisol at this time for convenience to avoid need for multiple 24 hour collections -it looks like she is handling potassium correctly at this time -k normalized with just two doses of KCl 40 yesterday -will change to 40 per day tomorrow HTN-stable overnite -would keep in current range -evaluation for secondary causes in progress -given aldosterone level < 4, hyperaldo appears to be excluded -patient describes onset of flu with N/V for one week -she does not describe high BP being identified prior to that time -she has no clinical features to suggest Cushings, although her skin pigmentation is more than I would expect for someone who has not been in the sun for the last three months or so. -will check ACTH level -plasma catecholamines are pending -renin level 1.8 -given her current readings on just amlodipine 5 mg daily, it is unlikely she has secondary HTN -I would keep her current dosing the same due to her neurologic issues -I think she had accelerated HTN that led to her hypertensive emergency -her BP is likely to go lower over time and she may not need long-term hypertension therapy -we will have her follow up in our office to guide therapy and to follow up on outstanding labs -she should be seen in 7-10 days after discharge Neuro-Dr. Hickey's note reviewed -PRES -no subarachnoid hemorrhage 08/18/16 09:30 Subjective: still dizzy and unsteady Objective: Vital Signs Temp Pulse Resp BP Pulse Ox 37.0 C 69 163 H 149/89 H 99 08/18/16 07:12 08/18/16 07:12 08/18/16 07:12 08/18/16 08:05 08/18/16 07:12 Laboratory Results 08/14/16 05:00 08/18/16 04:55 08/17/16 08/18/16 08/19/16 05:59 05:59 05:59 Intake Total 670 1000 Output Total 700 100 Balance -30 900 Physical Exam - Physical Exam General Appearance: alert, mild distress EENT: normal ENT inspection Neck: normal inspection Respiratory: lungs clear, normal breath sounds, No respiratory distress Cardiac/Chest: regular rate, rhythm Abdomen: normal bowel sounds Extremities: No swelling ICD10 Worksheet Patient Problems: Problems Problem Status Diagnosed Hypertension Acute Hypokalemia Acute Positional vertigo Acute
[2016-08-18] MEDS ORDERED: MECLIZINE HCL 12.5 MG TAB PO ONE (10:39)
--- NOTE | 2016-08-18 10:42 | HOSPPROG ---
Hospitalist Progress Note Assessment/Plan: hypertensive urgency- on amlopdipine and at goal renal ultrasound ( reviewed) negative for renal artery stenosis - continue oral calcium channel ric stable on norvasc acute intermittent encephalopathy- this seem to improve in the preceding 24 hours but has recurred this morning - c/w resolving PRES vertigo/headache- suspecting related to hypertensive urgency - MRI head ( personally reviewed and interpreted) without acute stroke or bleed oxygen saturations 93% on room air - Fioricet p.r.n. - trial of meclizine check orthostatics X 1 hypokalemia- stable on daily K history of metastatic colon cancer diagnosed 2013- in remission diet taking p.o. DVT prophylaxis- Lovenox disposition PT eval rec snf vs home care. await repeat eval Subjective: eukalemic. dizzy Objective: Vital Signs Temp Pulse Resp BP Pulse Ox 37.0 C 69 163 H 149/89 H 99 08/18/16 07:12 08/18/16 07:12 08/18/16 07:12 08/18/16 08:05 08/18/16 07:12 Laboratory Results 08/14/16 05:00 08/18/16 04:55 08/17/16 08/18/16 08/19/16 05:59 05:59 05:59 Intake Total 670 1000 Output Total 700 100 Balance -30 900 - Physical Exam Constitutional: no apparent distress, appears nourished Eyes: PERRL, anicteric sclera Ears, Nose, Mouth, Throat: moist mucous membranes, hearing normal Cardiovascular: regular rate and rhythym, no murmur, rub, or gallop Respiratory: no respiratory distress, no rales or rhonchi Gastrointestinal: normoactive bowel sounds, soft, non-tender abdomen Genitourinary: hemorrhoids, No puentes in urethra Skin: warm, normal color Musculoskeletal: full muscle strength, no muscle tenderness Neurologic: AAOx3, sensation intact bilaterally ICD10 Worksheet Patient Problems: Problems Problem Status Diagnosed Hypertension Acute Hypokalemia Acute Positional vertigo Acute
[2016-08-19] MEDS: MECLIZINE HCL 25 MG TAB PO PRN (06:05)
[2016-08-19 06:34] LABS: ANION GAP 8 mEq/L (8-16); CALCIUM 9.7 mg/dL (8.5-10.4); CARBON DIOXIDE 23 mEq/l (22-31); CHLORIDE 110 mEq/L (97-110); CREATININE 0.7 mg/dL (0.6-1.0); GLOMERULAR FILTRATION RATE > 60; GLUCOSE 84 mg/dL (70-100); MAGNESIUM 1.6 mg/dL (1.6-2.3); POTASSIUM 4.5 mEq/L (3.5-5.2); SODIUM 141 mEq/L (134-144)
[2016-08-19] MEDS: amLODIPine BESYLATE 5 MG TAB PO SCH (07:37)
[2016-08-19] MEDS ORDERED: POTASSIUM CL 20 MEQ TAB PO SCH (09:00)
[2016-08-19] MEDS ORDERED: MAGNESIUM SULF 1 GM/DEXTROSE 100 ML IV ONE (09:03)
--- NOTE | 2016-08-19 10:23 | SOAPPROG ---
SOAP Progress Note Assessment/Plan: Assessment/Plan: Hypokalemia - 24 hour urine shows normal renal handling of potassium as it was low. 24 cortisol pending. Pt has quickly responded to potassium supplementation and now K is 4.5. - Will hold KCl tomorrow until labs are checked first before further replacement. HTN: BP stable on amlodipine 5mg po daily alone. 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 Pt has no features to suggest Cushings. - ACTH level, catecholamines are still pending. - Unlikely she has secondary HTN. - Will continue amlodipine at her current dose. - She will need to have BP followed up 1-2 weeks post-discharge. Subjective: No acute events overnight. Pt states that after meclizine this am her dizziness is better. Objective: Vital Signs Temp Pulse Resp BP Pulse Ox 36.4 C 60 12 162/84 H 97 08/19/16 07:33 08/19/16 07:33 08/19/16 07:33 08/19/16 07:33 08/19/16 07:33 Laboratory Results 08/14/16 05:00 08/19/16 06:00 08/18/16 08/19/16 08/20/16 05:59 05:59 05:59 Intake Total 1000 1090 Output Total 100 400 Balance 900 690 General: alert and oriented, no acute distress Eyes; EOMI, PERRL OP: Clear CV: RRR Resp: CTA bilat, nonlabored respirations Abd; Soft, NT/ND Ext: no edema Neuro: CN II-XII grossly intact, no asterixis Psych: cooperative, appropriate mood and affect ICD10 Worksheet Patient Problems: Problems Problem Status Diagnosed Hypertension Acute Hypokalemia Acute Positional vertigo Acute
--- NOTE | 2016-08-19 14:53 | HOSPPROG ---
Hospitalist Progress Note Assessment/Plan: hypertensive urgency- on amlopdipine and at goal renal ultrasound ( reviewed) negative for renal artery stenosis - continue oral calcium channel ric stable on norvasc acute intermittent encephalopathy- this seem to improve in the preceding 24 hours but has recurred this morning - c/w resolving PRES vertigo/headache- suspecting related to hypertensive urgency - MRI head ( personally reviewed and interpreted) without acute stroke or bleed oxygen saturations 93% on room air - Fioricet p.r.n. - trial of meclizine check orthostatics X 1 hypokalemia- stable on daily K history of metastatic colon cancer diagnosed 2013- in remission diet taking p.o. DVT prophylaxis- Lovenox disposition PT eval rec snf vs home care. await repeat eval Subjective: improving every day w pt. still dizzy but less so Objective: Vital Signs Temp Pulse Resp BP Pulse Ox 36.4 C 60 12 162/84 H 97 08/19/16 07:33 08/19/16 07:33 08/19/16 07:33 08/19/16 07:33 08/19/16 07:33 Laboratory Results 08/14/16 05:00 08/19/16 06:00 08/18/16 08/19/16 08/20/16 05:59 05:59 05:59 Intake Total 1000 1090 Output Total 100 400 Balance 900 690 - Physical Exam Constitutional: no apparent distress Eyes: anicteric sclera Ears, Nose, Mouth, Throat: moist mucous membranes, hearing normal Cardiovascular: regular rate and rhythym, no murmur, rub, or gallop Respiratory: no respiratory distress, no rales or rhonchi Gastrointestinal: normoactive bowel sounds Genitourinary: No puentes in urethra Skin: warm, normal color Musculoskeletal: full muscle strength, no muscle tenderness Neurologic: AAOx3 Psychiatric: interacting appropriately ICD10 Worksheet Patient Problems: Problems Problem Status Diagnosed Hypertension Acute Hypokalemia Acute Positional vertigo Acute
[2016-08-20] MEDS: ONDANSETRON 4 MG/2 ML VIAL IVP PRN (06:36)
[2016-08-20] MEDS ORDERED: MAGNESIUM SULF 1 GM/DEXTROSE 100 ML IV ONE (07:56)
[2016-08-20] MEDS: amLODIPine BESYLATE 5 MG TAB PO SCH (08:38)
--- NOTE | 2016-08-20 10:13 | SOAPPROG ---
SOAP Progress Note Assessment/Plan: Assessment: 1. Hypertension Yamileth is doing much better overall. I do not believe that she has a hypokalemia associated form of hypertension. Initial evaluation for secondary forms of hypertension has not been revelatory. Her BP had been good, although readings early today have been higher. Would wait for some additional readings before additional adjustment. We will follow her when she leaves the hospital. She needs to purchase an omron BP cuff, and take her BP twice daily. We will see her within a week of discharge. Plan: 08/20/16 10:06 Subjective: Doing much better Objective: Vital Signs Temp Pulse Resp BP Pulse Ox 36.7 C 73 17 170/97 H 96 08/20/16 07:16 08/20/16 07:16 08/20/16 07:16 08/20/16 07:16 08/20/16 07:16 Laboratory Results 08/14/16 05:00 08/19/16 06:00 08/19/16 08/20/16 08/21/16 05:59 05:59 05:59 Intake Total 1090 1180 Output Total 400 Balance 690 1180 Physical Exam - Physical Exam General Appearance: no apparent distress Respiratory: lungs clear Cardiac/Chest: regular rate, rhythm Extremities: normal inspection Neuro/Psych: oriented x 3 ICD10 Worksheet Patient Problems: Problems Problem Status Diagnosed Hypertension Acute Hypokalemia Acute Positional vertigo Acute
--- NOTE | 2016-08-20 11:10 | HOSPPROG ---
Hospitalist Progress Note Assessment/Plan: hypertensive urgency- on amlopdipine and at goal renal ultrasound ( reviewed) negative for renal artery stenosis - continue oral calcium channel ric stable on norvasc acute intermittent encephalopathy- this seem to improve in the preceding 24 hours but has recurred this morning - c/w resolving PRES vertigo/headache- suspecting related to hypertensive urgency - MRI head ( personally reviewed and interpreted) without acute stroke or bleed oxygen saturations 93% on room air - Fioricet p.r.n. - trial of meclizine check orthostatics X 1 hypokalemia- stable on daily K history of metastatic colon cancer diagnosed 2013- in remission diet taking p.o. DVT prophylaxis- Lovenox disposition home today > 30 minutes outpt OT/PT Subjective: ready for dc Objective: Vital Signs Temp Pulse Resp BP Pulse Ox 36.7 C 73 17 170/97 H 96 08/20/16 07:16 08/20/16 07:16 08/20/16 07:16 08/20/16 07:16 08/20/16 08:40 Laboratory Results 08/14/16 05:00 08/19/16 06:00 08/19/16 08/20/16 08/21/16 05:59 05:59 05:59 Intake Total 1090 1180 Output Total 400 Balance 690 1180 - Physical Exam Constitutional: no apparent distress, appears nourished Eyes: PERRL, anicteric sclera Ears, Nose, Mouth, Throat: moist mucous membranes, hearing normal Cardiovascular: regular rate and rhythym, no murmur, rub, or gallop Respiratory: no respiratory distress, no rales or rhonchi Gastrointestinal: normoactive bowel sounds, soft, non-tender abdomen Genitourinary: no bladder fullness, No puentes in urethra Skin: warm, normal color Musculoskeletal: full muscle strength, no muscle tenderness Neurologic: AAOx3 ICD10 Worksheet Patient Problems: Problems Problem Status Diagnosed Hypertension Acute Hypokalemia Acute Positional vertigo Acute
--- NOTE | 2016-08-20 11:13 | PDIAF ---
- Diagnosis Diagnosis: hypertensive urgency; PRES Code Status: Full Code - Medication Management Discharge Medications: Medications to Continue on Transfer Ferrous Sulfate [Ferrous Sulf 325 MG (*)] 325 mg PO DAILY 08/11/16 [Last Taken Unknown] Herbals/Supplements -Info Only 1 ea PO DAILY 08/11/16 [Last Taken Unknown] Potassium Cl [Klor-Con 10 meq (RX)] 10 meq PO BID 08/11/16 [Last Taken Unknown] Meclizine HCl [Meclizine HCl 25 mg (RX,OTC)] 25 mg PO BID PRN #20 tab 08/20/16 [ Last Taken Unknown] amLODIPine BESYLATE [Norvasc 5 mg (*)] 5 mg PO DAILY #30 tab 08/20/16 [Last Taken Unknown] Discharge Medications: Refer to the Discharge Home Medication list for PRN reason. - Orders Services needed: Home Care, Occupational Therapy Home Care Face to Face: I certify that this patient was under my care and that I had the required [id number] encounter meeting the encounter requirements on the discharge day. My findings support the fact that the patient is homebound as defined in CMS Chapter 7 Medicare Benefits Manual 30.1.1, The condition of the patient is such that there exists a normal inability to leave home and consequently, leaving home would require a considerable and taxing effort. - Follow Up Care Current Providers and Referrals: Marc Mcgrath DO [Medical Doctor] - As per Instructions Saritha Ortiz MD [Medical Doctor] - As per Instructions
--- NOTE | 2016-08-20 12:26 | PDIAF ---
- Diagnosis Diagnosis: hypertensive urgency; PRES Code Status: Full Code - Medication Management Discharge Medications: Medications to Continue on Transfer Ferrous Sulfate [Ferrous Sulf 325 MG (*)] 325 mg PO DAILY 08/11/16 [Last Taken Unknown] Herbals/Supplements -Info Only 1 ea PO DAILY 08/11/16 [Last Taken Unknown] Potassium Cl [Klor-Con 10 meq (RX)] 10 meq PO BID 08/11/16 [Last Taken Unknown] Meclizine HCl [Meclizine HCl 25 mg (RX,OTC)] 25 mg PO BID PRN #20 tab 08/20/16 [ Last Taken Unknown] amLODIPine BESYLATE [Norvasc 5 mg (*)] 5 mg PO DAILY #30 tab 08/20/16 [Last Taken Unknown] Discharge Medications: Refer to the Discharge Home Medication list for PRN reason. - Orders Services needed: Home Care, Physical Therapy, Occupational Therapy Home Care Face to Face: I certify that this patient was under my care and that I had the required [id number] encounter meeting the encounter requirements on the discharge day. My findings support the fact that the patient is homebound as defined in CMS Chapter 7 Medicare Benefits Manual 30.1.1, The condition of the patient is such that there exists a normal inability to leave home and consequently, leaving home would require a considerable and taxing effort. - Follow Up Care Current Providers and Referrals: Isauro English MD [Medical Doctor] - Marc Mcgrath DO [Medical Doctor] - As per Instructions Saritha Ortiz MD [Medical Doctor] - As per Instructions
[2016-08-20 13:19] VITALS: BP 173/100; PULSE 74; RESP 19; TEMP 98; O2SAT 98
[2016-08-20 17:42] LABS: NOREPINEPHRINE URINE RANDOM 146 ug/g cre (7-65); TOTAL N+E URINE RANDOM 156 ug/g cre (9-74)
--- NOTE | 2016-08-20 19:56 | GDS ---
[f rep st] DISCHARGE SUMMARY DISCHARGE DIAGNOSES: 1. Posterior reversible encephalopathy syndrome. 2. Hypertensive urgency. 3. Hypokalemia of uncertain etiology. CONSULTS: Neurology and Critical Care, as well as Nephrology. HOSPITAL COURSE: Please see admission history and physical by Dr. Amy Madera. The patient presented on the afternoon of the with dizziness. She was hypertensive at 200/100 on presentation. She had a noncontrast head CT on presentation that was normal. She had an MRI at that time that was limited in evaluation secondary to movement. A couple days later, she had an MRI, moderate white matter disease. She had a third MRI that was suspicious for bleed, but this was ultimately exonerated by CT. She had a CTA of her head and neck showing minimal atherosclerotic disease, no flow-limiting disease. She was felt to be consistent with no vascular disease. The patient was hypokalemic. She had a bunch of labs sent, which showed no signs of secondary blood loss. She had a 24 hour urine collection with low creatinine, low sodium , low potassium. She had a stable potassium for the last several days of her hospitalization on oral replacement. Her hypertension was well controlled on Norvasc alone. The underlying etiology of her presentation and hospital course is not entirely clear. She is discharged home doing well and follow up with Nephrology for blood pressure management. New prescriptions are meclizine to which her dizziness responded somewhat, as well as Norvasc. /[id number]/MODL MTDD
[2016-08-21 15:43] LABS: COLLECTION DURATION CORTISOL U 24 h (()); URINE VOLUME CORTISOL URINE 350 mL (())
== END 2016-08-20 13:55 | disposition home health service (06) | DRG 304 ==
LOC: F1N 11:51 → F2N 08-12 00:15 → INTOOBSV 08-12 14:00 → OBSVTOIN 08-12 14:00 → F2N 08-16 08:24 → F3E 08-19 21:21
PROVIDERS: ADMIT Internal Medicine; ATTEND Internal Medicine
DX: I16.0 Hypertensive urgency (principal); I67.83 Posterior reversible encephalopathy syndrome; E87.6 Hypokalemia; Z85.038 Personal history of other malignant neoplasm of large intestine; Z80.3 Family history of malignant neoplasm of breast; E83.42 Hypomagnesemia; Z23 Encounter for immunization
CPT/HCPCS: 82024-90; 82088-90; 82382-90; 82384-90; 82530-90; 84244-90; 96374; 97110-GP; 97112-GP; 97116-GP; 97161-GP; 97165-GO; 97530-GO; 97530-GP; 97535-GO; A9585; G0008; G0378; G8978-GP-CK; G8979-GP-CI; G8987-GO-CK; G8988-GO-CI; J0360; J1650; J2405; J3475; Q9967

== ENCOUNTER → 2017-02-06 | Outpatient (CLI) | payer OTHER ==
[~2017-02-06] MED LIST changes: +GADOBUTROL 10 ML VIAL IVP ONE; -LIDOCAINE 1% 30 ML SDV ONE; -NA BICARBONATE 50 MEQ/50 ML VIAL ONE
== END ==
LOC: FIMAGING 18:37
PROVIDERS: ATTEND Internal Medicine Hematology & Oncology
DX: Z09 Encounter for follow-up examination after completed treatment for conditions other than malignant neoplasm (principal); R90.82 White matter disease, unspecified
CPT/HCPCS: 70553; A9585

== ENCOUNTER → 2018-05-14 | Outpatient (CLI) | payer OTHER | LOC: FIMAGING 12:37 | PROVIDERS: ATTEND Internal Medicine Hematology & Oncology | DX: R91.1 Solitary pulmonary nodule (principal); Z85.09 Personal history of malignant neoplasm of other digestive organs ==

== ENCOUNTER 2018-05-26 09:12 | Day surgery (SDC) | payer OTHER ==
[2018-05-26] MEDS ORDERED: NALOXONE HCL 0.4 MG/ML INJ IVP PRN ×2 (09:48→13:22)
[2018-05-26] MEDS ORDERED: HEPARIN 10,000 UNIT/10 ML MDV (1,000 UNIT/ML) IVP PRN (09:48)
[2018-05-26] MEDS ORDERED: ALTEPLASE 2 MG VIAL IVP PRN (09:48)
[2018-05-26] MEDS ORDERED: MEPERIDINE 25 MG/ML SYR IVP PRN (09:48)
[2018-05-26] MEDS ORDERED: FLUMAZENIL 0.5 MG/5 ML MDV IVP PRN (09:48)
[2018-05-26] MEDS ORDERED: GLUCAGON HCL 1 MG VIAL IVP PRN (09:48)
[2018-05-26] MEDS ORDERED: PROTAMINE SULFATE 50 MG/5 ML VIAL IVP PRN (09:48)
[2018-05-26] MEDS ORDERED: NS 1,000 ML IV SCH (10:00)
[2018-05-26 10:24] LABS: INR 1.03 (0.83-1.16); PROTIME(PATIENT) 13.7 SEC (12.0-15.0)
--- NOTE | 2018-05-26 10:27 | PDANEPAE ---
ANE History of Present Illness pulmonary nodule, here for CT ablation ANE Past Medical History - Cardiovascular History Hx Hypertension: Yes Hx Arrhythmias: No Hx Chest Pain: No Hx Coronary Artery / Peripheral Vascular Disease: No Cardiovascular History Comment: HTN crisis 07/2016 x 1...light headed at times - Pulmonary History Hx Oxygen in Use at Home: No Hx Sleep Apnea: No Sleep Apnea Screening Result - Last Documented: Negative - Neurologic History Neurologic History Comment: no - Endocrine History Hx Diabetes: No - Renal History Renal History Comment: neph b/c of HTN hx - Liver History Hepatic History Comment: no - Neurological & Psychiatric Hx Neurological / Psychiatric History Comment: no - Cancer History Cancer History Comment: stomach, colon - Congenital Disorder History Congenital History Comment: no - GI History Gastrointestinal History Comment: colon ca and stomach - Other Health History Other Health History: no - Surgical History Prior Surgeries: 04/2014 appy, 03/2016 stomach cancer sx, ANE Review of Systems Review of Systems: - Exercise capacity METS (RN): 3 METS ANE Patient History - Allergies Allergies/Adverse Reactions: No Known Allergies Allergy (Unverified 08/11/16 07:10) - Home Medications Home Medications: Potassium Cl [Klor-Con 10 meq (RX)] 1.08 mg PO BID 08/11/16 [Last Taken 08:00] Excedrin Tablet (*) 1 - 2 tab PO Q4 PRN 05/22/18 [Last Taken Unknown] Ibuprofen 600 mg PO Q6 PRN 05/22/18 [Last Taken Unknown] - NPO status NPO Status: no food or drink >8 hours - Anes Hx Anes Hx: no prior problems - Smoking Hx Smoking Status: Never smoked - Alcohol Use Alcohol Use: Occasionally - Family Anes Hx Family Anes Hx: none Family Hx Anesthesia Complications: no ANE Labs/Vital Signs - Labs Result Diagrams: 05/26/18 09:50 - Vital Signs Vital Signs: reviewed preoperatively; see RN documention for details Height: 165.1 cm Weight: 74.843 kg ANE Physical Exam - Airway Neck exam: FROM Mallampati Score: Class 2 Mouth exam: normal dental/mouth exam, dentures - Pulmonary Pulmonary: no respiratory distress, clear to auscultation - Cardiovascular Cardiovascular: regular rate and rhythym, no murmur, rub, or gallop - ASA Status ASA Status: II ANE Anesthesia Plan Anesthesia Plan: general endotracheal anesthesia
[2018-05-26] MEDS ORDERED: PROPOFOL 200 MG/20 ML VIAL ONE (10:28)
[2018-05-26] MEDS ORDERED: MIDAZOLAM 2 MG/2 ML VIAL ONE (10:28)
[2018-05-26] MEDS ORDERED: PROPOFOL/EMULSION 500 MG/50 ML BOTTLE IV ONE (10:28)
[2018-05-26] MEDS ORDERED: MIDAZOLAM 2 MG/2 ML VIAL IVP ONE (10:30)
[2018-05-26] MEDS ORDERED: ROCURONIUM 100 MG/10 ML VIAL ONE (10:39)
[2018-05-26] MEDS ORDERED: SUGAMMADEX SODIUM 200 MG/2 ML VIAL IVP ONE (10:45)
[2018-05-26] MEDS ORDERED: fentaNYL 100 MCG/2 ML INJ ONE (10:56)
[2018-05-26] MEDS ORDERED: LIDOCAINE 1% 300 MG/30 ML SDV ONE (10:58)
[2018-05-26] MEDS ORDERED: ONDANSETRON 4 MG/2 ML VIAL ONE (13:00)
[2018-05-26] MEDS ORDERED: LIDOCAINE 2% JELLY 5 ML TUBE ONE (13:00)
[2018-05-26] MEDS ORDERED: ONDANSETRON 4 MG/2 ML VIAL IVP PRN ×2 (13:18→13:22)
[2018-05-26] MEDS ORDERED: fentaNYL 100 MCG/2 ML INJ IVP PRN (13:22)
[2018-05-26] MEDS ORDERED: HYDROCODONE/APAP 5/325 TAB PO PRN (13:22)
[2018-05-26] MEDS ORDERED: PROMETHAZINE HCL 25 MG/ML INJ IVP PRN (13:22)
[2018-05-26] MEDS ORDERED: ACETAMINOPHEN 500 MG TAB PO PRN (13:22)
--- NOTE | 2018-05-26 13:23 | POSTANESTH ---
Post Anesthetic Evaluation Cardiovascular Status: Normal, Stable, Similar to Pre-Op Cond Respiratory Status: Normal, Stable, Similar to Pre-op Cond. Level of Consciousness/Mental Status: Can Participate in Eval, Alert and Oriented Pain Control: Adequate, Prn Tx Ordered Nausea/Vomiting Control: Adequate, Prn Tx Ordered Complications Possibly Related to Anesthesia: None Noted
[2018-05-26] MEDS ORDERED: HYDROmorphONE/DILAUDID 2 MG/ML INJ ONE (13:31)
[2018-05-26] MEDS ORDERED: oxyCODONE IR 5 MG TAB ONE ×2 (13:42→18:00)
[2018-05-26] MEDS ORDERED: DIAZEPAM 5 MG/ML 1 ML SYR ONE (13:42)
[2018-05-26] MEDS: DIAZEPAM 5 MG/ML 1 ML SYR IVP PRN ×2 (13:45→13:54)
[2018-05-26] MEDS: oxyCODONE IR 5 MG TAB PO PRN ×2 (13:46→18:05)
[2018-05-26] MEDS ORDERED: oxyCODONE IR 5 MG TAB PO ONE (18:15)
[2018-05-26 18:32] VITALS: BP 121/72
--- NOTE | 2018-05-27 23:16 | CPEKG ---
Test Reason : OPEN Blood Pressure : / mmHG Vent. Rate : 067 BPM Atrial Rate : 068 BPM P-R Int : 144 ms QRS Dur : 078 ms QT Int : 396 ms P-R-T Axes : 060 021 073 degrees QTc Int : 418 ms SINUS RHYTHM U waves Confirmed by Иван Bustamante ([id number]) on 05/27/2018 11:15:41 PM Referred By: Confirmed By:Иван Bustamante
== END 2018-05-26 18:21 | disposition home or self-care (01) ==
LOC: FIMAGING 09:12
PROVIDERS: ATTEND Radiology Diagnostic Radiology
PROC: 0B5 Respiratory System, Destruction (ICD-10-PCS; principal; 2018-05-26 13:19)
PROC: 0BBJ3ZX Excision of Left Lower Lung Lobe, Percutaneous Approach, Diagnostic (ICD-10-PCS; principal; 2018-05-26 13:19)
DX: C34.92 Malignant neoplasm of unspecified part of left bronchus or lung (principal); J95.811 Postprocedural pneumothorax; C18.1 Malignant neoplasm of appendix; R31.0 Gross hematuria; K76.0 Fatty (change of) liver, not elsewhere classified; I10 Essential (primary) hypertension; Z78.0 Asymptomatic menopausal state; Z80.3 Family history of malignant neoplasm of breast; Z85.028 Personal history of other malignant neoplasm of stomach; Z90.49 Acquired absence of other specified parts of digestive tract; Z85.038 Personal history of other malignant neoplasm of large intestine
CPT/HCPCS: J1170; J2250; J2270; J2405; J2704; J3010; J3360